=== PATIENT | male | born 1945 | race Hispanic/Latino ===

== ENCOUNTER 2020-05-03 18:37 | Inpatient (IN) | payer MEDICARE ==
--- NOTE | 2020-05-03 19:43 | RAD ---
EXAM: CHEST ONE VIEW HISTORY: Shortness of breath. Missed dialysis yesterday. COMPARISON: 04/03/2020 FINDINGS: Right-sided tunneled hemodialysis catheter remains in place. Cardiac silhouette is magnified by proje ction. Pulmonary vasculature and interstitial edema noted on the prior exam has significantly improved. A small to moderate size right pleural effusion is again seen but has decreased in size. No left pleural effusion is appreciated. No other interval change. IMPRESSION: Resolution of vascular congestion and interstitial edema compared to prior exam. Right pleural effusi on is again seen but mildly diminished in size.
--- NOTE | 2020-05-03 19:51 | CT ---
CT HEAD WITHOUT IV CONTRAST COMPARISON: 01/03/2020 HISTORY: Altered mental status TECHNIQUE: Axial CT imaging at 5 mm intervals from vertex through skull base without contrast FINDINGS: There is decreased attenuation in the periventricular white matter which is nonspecific but likely re flective of chronic small vessel ischemic changes. There is mild cerebral volume loss. The ventricular system is normal in size, shape, and position for the degree of sulcal atrophy. There is no evidence of an acute infarction, hemorrhage, mass effect, or midline shift. Skull base has a normal CT appearance. Trace mucosal thickening is present in the right maxillary antrum. Mastoid air cells are clear. Osseous structures appear intact. No significant interval change compared to prior study. IMPRESSION: 1. No acute intracranial abnormality demonstrated. 2. Stable chronic changes.
[2020-05-03 20:18] LABS: Hemoglobin 9.9 g/dL (14.0-18.0); Mean Corpuscular HGB CONC 30.9 g/dL (32.0-36.0); RBC Distribution Width 15.3 % (11.5-14.5); Red Blood Cell (RBC) Count 3.17 mill/uL (4.70-6.10); White Blood Cell (WBC) Count 9.1 thou/uL (4.8-10.8)
[2020-05-03 20:26] LABS: #Eosinphils 0.2 thou/uL (0.0-0.7); #Lymphocytes 1.5 thou/uL (1.20-3.40); #Monocytes 0.7 thou/uL (0.11-0.59); #Neutrophils 6.7 thou/uL (1.40-6.50); %Basophils 0.3 % (0.0-1.0); %Eosinophils 2.3 % (0.0-10.0); %Lymphocytes 16.5 % (21.0-51.0); %Monocytes 7.6 % (0.0-10.0); %Neutrophils 73.3 % (42.0-75.0)
[2020-05-03] MEDS ORDERED: cefTRIAXone\\ROCEPHIN 1 GM VIAL ONE (21:31)
[2020-05-03] MEDS ORDERED: Vancomycin 1 GM/200 ML BAG ONE (21:31)
[2020-05-03 21:47] LABS: ALT (SGPT) 7 U/L (8-55); AST (SGOT) 12 U/L (5-34); Albumin 3.1 g/dL (3.4-4.8); Alkaline Phosphatase 163 U/L (40-110); Anion Gap 18 mmol/L (10-20); BUN (Urea Nitrogen) 27 mg/dL (8.4-25.7); Bilirubin, Total 0.5 mg/dL (0.2-1.2); Calc. Creatinine Clearance 0 mL/min (70-130); Calcium 8.7 mg/dL (7.8-10.44); Carbon Dioxide 25 mmol/L (23-31); Chloride 102 mmol/L (98-107); Globulin 3.6 g/dL (2.4-3.5); Glucose 98 mg/dL (83-110); Lipase 56 U/L (8-78); Potassium 3.6 mmol/L (3.5-5.1); Protein, Total 6.7 g/dL (5.8-8.1); Sodium 141 mmol/L (136-145)
[2020-05-03 22:03] LABS: Mean Platelet Volume 8.5 fL (7.4-10.4); Platelet Count 154 thou/uL (130-400)
--- NOTE | 2020-05-03 23:15 | PDOC.HHP ---
Hospitalist HPI - History of Present Illness History of Present Illness: ADMISSION DATE: 05/03/2020 TIME OF ASSESSMENT: 0 PRIMARY CARE PHYSICIAN: Karlos at [facility] CHIEF COMPLAINT: Generalized weakness HPI: Patient is a 75-year-old male with past medical history significant for end-stage renal disease on dialysis, Covid diagnosis last month, hypertension. He presents today for generalized weakness which began this morning. Patient states he was supposed to have dialysis yesterday but missed it due to nonfunctioning vehicle. He denies fever, chest pain, nausea, vomiting, shortness of breath. Patient states he was feeling fine yesterday and just woke up more tired today. No new medications have been started. APS was contacted while patient was in the ER. After the patient has dialysis yesterday the nephew dropped him off at the dialysis clinic before seeing if there is any availability. The nephew left at that time and dialysis in the police department was seen unable to get a hold of him. EMS was called and brought the patient to the hospital at that time. Patient declined to mention this during interview and states that he was here for his weakness. Patient was Covid positive approximately a month ago but states he is better from that. ED COURSE: Vital Signs: Blood pressure 179/98, pulse 77, respiratory rate 20, temp 98.7, O2 saturation 96% on room air Today in the ER they completed lab work, head CT, chest x-ray, EKG. He was administered vancomycin 1 g IV and ceftriaxone 1 g IV. PAST MEDICAL HISTORY: End-stage renal disease on dialysis, diabetes mellitus type 2, hyperlipidemia, hypertension PAST SURGICAL HISTORY: Bilateral rotator cuff surgery, right subclavian HD catheter placement SOCIAL HISTORY: Patient lives in an apartment with family. He uses a wheelchair to get around, states he is unable to ambulate. Patient denies tobacco, drug, alcohol use. FAMILY HISTORY: Patient is unable to recall ALLERGIES: No known drug allergies CURRENT MEDICATIONS: Atorvastatin 40 mg once a day Bisacodyl 5 mg once a day Bupropion 150 mg once a day Carvedilol 12.5 mg twice a day Hydralazine 100 mg 3 times a day Losartan 100 mg once a day MiraLAX once a day Namenda 10 mg twice a day Nifedipine 60 mg once a day Oxycodone as needed Pantoprazole 40 mg daily Tamsulosin 0.4 mg daily Tizanidine 4 mg every 8 hours Trazodone 200 mg at night Vitamin D3 2000 units daily Hospitalist ROS - Review of Systems Constitutional: reports: weakness All other systems reviewed; all pertinent +/- noted in HPI/Subj - Exam General Appearance: NAD, awake alert Eye: PERRL ENT: normocephalic atraumatic Neck: supple Neck - other findings: right subclavian HD port Heart: RRR, no gallops, diminshed peripheral pulses, murmur present (3/6) Respiratory: CTAB, no wheezes, no rales, no ronchi, normal chest expansion Gastrointestinal: soft, non-tender, non-distended, normal bowel sounds Extremities: 1+ LE edema Neurological: no focal deficits Musculoskeletal: no muscle wasting, generalized weakness Psychiatric: normal affect, normal behavior Hospitalist Results - Labs Result Diagrams: 05/03/20 19:52 05/03/20 21:17 Lab results: WBC 9.1 thou/uL (4.8-10.8) 05/03/20 19:52 Hgb 9.9 g/dL (14.0-18.0) L 05/03/20 19:52 Hct 31.9 % (42.0-52.0) L 05/03/20 19:52 MCV 100.0 fL (78.0-98.0) H 05/03/20 19:52 Plt Count 154 thou/uL (130-400) 05/03/20 19:52 Neutrophils % 73.3 % (42.0-75.0) 05/03/20 19:52 Sodium 141 mmol/L (136-145) 05/03/20 21:17 Potassium 3.6 mmol/L (3.5-5.1) 05/03/20 21:17 Chloride 102 mmol/L (98-107) 05/03/20 21:17 Carbon Dioxide 25 mmol/L (23-31) 05/03/20 21:17 BUN 27 mg/dL (8.4-25.7) H 05/03/20 21:17 Creatinine 8.02 mg/dL (0.7-1.3) H 05/03/20 21:17 Glucose 98 mg/dL (83-110) 05/03/20 21:17 Lactic Acid 2.1 mmol/L (0.5-2.2) 05/03/20 20:18 Calcium 8.7 mg/dL (7.8-10.44) 05/03/20 21:17 Total Bilirubin 0.5 mg/dL (0.2-1.2) 05/03/20 21:17 AST 12 U/L (5-34) 05/03/20 21:17 ALT 7 U/L (8-55) L 05/03/20 21:17 Alkaline Phosphatase 163 U/L (40-110) H 05/03/20 21:17 Troponin I 0.023 ng/mL (< 0.028) 05/03/20 19:52 Serum Total Protein 6.7 g/dL (5.8-8.1) 05/03/20 21:17 Albumin 3.1 g/dL (3.4-4.8) L 05/03/20 21:17 Lipase 56 U/L (8-78) 05/03/20 21:17 - EKG Interpretation EKG: SR 76 bpm - Radiology Interpretation CT scan - head Status: report reviewed by me Additional Comment: IMPRESSION: 1. No acute intracranial abnormality demonstrated. 2. Stable chronic changes. Chest x-ray Status: image reviewed by me, report reviewed by me Additional Comment: IMPRESSION: Resolution of vascular congestion and interstitial edema compared to prior exam. Right pleural effusion is again seen but mildly diminished in size. Hospitalist H&P A/P - Plan Plan: Generalized weakness Possible new onset murmurecho in a.m. Continue to follow labs Patient is poor historian but reports missed dialysis treatment yesterday Heart murmur- possibly new Echo in a.m. Concerns for endocarditis in ERcurrently afebrile, no leukocytosiscontinue to monitor patient vitals along with lab work, continue IV antibiotics and consider cardiology consultation if deemed necessary after echo tomorrow Anemia Possibly from chronic disease Continue to monitor, no signs of bleeding Hypertension Restart patient home medications once reconciled End-stage renal disease on dialysis Consult nephrology in a.m. Patient may possibly need dialysis tomorrow as he missed yesterday Diabetes mellitus type 2 Monitor Accu-Cheks AC at bedtime Mild sliding scale insulin VTE prophylaxis in place with heparin CODE STATUS: Full Surrogate decision-maker is his nephew
[2020-05-03] MEDS ORDERED: HumaLOG 300 UNITS/3 ML VIAL SC PRN ×2 (23:27)
[2020-05-03] MEDS ORDERED: Dextrose 5% in Water 1,000 ML IV PRN (23:27)
[2020-05-03] MEDS ORDERED: Dextrose 50% Abboject 50 ML SYRINGE SLOW IVP PRN (23:27)
[2020-05-04 00:21] LABS: Lactic Acid 1.4 mmol/L (0.5-2.2)
[2020-05-04] MEDS ORDERED: Vancomycin HCl 250 MG in Sodium Chloride 0.9% 100 ML IVPB SCH (01:30)
[2020-05-04] MEDS ORDERED: HOLD VANCOMYCIN FOR LEVEL >20 FS SCH (01:30)
[2020-05-04] MEDS ORDERED: Vancomycin HCl 750 MG in Sodium Chloride 0.9% 250 ML 250 ML IVPB SCH ×2 (01:30→23:59)
[2020-05-04] MEDS ORDERED: Vancomycin HCl 500 MG in Sodium Chloride 0.9% 100 ML IVPB SCH (01:30)
[2020-05-04] MEDS ORDERED: Vancomycin 1 GM in Premix Bag 1 BAG IVPB SCH (01:30)
[2020-05-04] MEDS ORDERED: Labetalol HCl 100 MG/20 ML VIAL SLOW IVP PRN (04:07)
[2020-05-04] MEDS ORDERED: hydrALAZINE 20 MG/ML VIAL SLOW IVP PRN (04:07)
[2020-05-04] MEDS: Heparin 5,000 UNITS/ML VIAL SC SCH ×3 (08:49→20:36)
[2020-05-04] MEDS ORDERED: FLU VACC QS2020-21(65YR UP)/PF 240 MCG/0.7 ML SYRINGE IM ONE (09:00)
[2020-05-04 11:01] LABS: #Eosinphils 0.3 thou/uL (0.0-0.7); #Monocytes 0.5 thou/uL (0.11-0.59); #Neutrophils 7.4 thou/uL (1.40-6.50); %Basophils 0.4 % (0.0-1.0); %Lymphocytes 10.8 % (21.0-51.0); %Monocytes 4.9 % (0.0-10.0); %Neutrophils 80.9 % (42.0-75.0); Mean Corpuscular HGB CONC 31.6 g/dL (32.0-36.0); Mean Corpuscular Hemoglobin 31.6 pg (27.0-31.0); Mean Platelet Volume 8.9 fL (7.4-10.4); Platelet Count 161 thou/uL (130-400); RBC Distribution Width 15.1 % (11.5-14.5); Red Blood Cell (RBC) Count 2.83 mill/uL (4.70-6.10); White Blood Cell (WBC) Count 9.1 thou/uL (4.8-10.8)
[2020-05-04 11:21] LABS: Anion Gap 17 mmol/L (10-20); BUN (Urea Nitrogen) 34 mg/dL (8.4-25.7); Calc. Creatinine Clearance 7 mL/min (70-130); Calcium 8.4 mg/dL (7.8-10.44); Carbon Dioxide 26 mmol/L (23-31); Chloride 102 mmol/L (98-107); Glucose 100 mg/dL (83-110); Potassium 3.6 mmol/L (3.5-5.1); Sodium 141 mmol/L (136-145)
--- NOTE | 2020-05-04 13:55 | PDOC.NEPPN ---
- Subjective Encounter Date: 05/04/20 Subjective: 75 y/o male, well known to me from prior hospitalizations at [facility], with multiple comorbities including HTN, ESRD on HD MWF amongst others admitted due to generalized weakness. He denied nausea, vomiting, frequent loose stool, chest pain or fever. Last HD was on 04/30/2020. Still complaining of weakness. Remained afebrile. - Objective Vital Signs & Weight: Vital Signs (12 hours) Temp Pulse Resp BP BP Pulse Ox 05/04/20 11:42 98.3 F 101 H 18 171/86 H 97 05/04/20 08:45 99.4 F 99 16 162/76 H 95 05/04/20 05:09 78 172/83 H 05/04/20 03:50 98.2 F 78 17 182/88 H 97 Weight Weight 139 lb 6.4 oz I&O: 05/03/20 05/04/20 05/05/20 06:59 06:59 06:59 Intake Total 480 480 Output Total 0 0 Balance 480 480 Result Diagrams: 05/04/20 10:36 05/04/20 10:36 Additional Labs: Accuchecks 05/04/20 05/04/20 10:52 06:45 POC Glucose 98 101 H Nephrology ROS - Medication Medications: Active Medications Generic Name Dose Route Start Last Admin Trade Name Isaacq PRN Reason Stop Dose Admin Heparin Sodium (Porcine) 5,000 units 05/04/20 09:00 05/04/20 08:49 Heparin 5,000 Units/Ml Vial SC 5,000 units TID CHRISTIAN Administration - Exam General Appearance: awake alert General - other findings: fatigued. afebrile. Eye: anicteric sclera ENT: normocephalic atraumatic, moist mucosa Neck: symmetric, no JVD Respiratory: no ronchi, no tachypnea Respiratory - other findings: fair air entry bilaterally Cardiovascular: RRR, murmur present Gastrointestinal: soft, non-tender, non-distended, normal bowel sounds Extremities: no edema Neurological: CN's grossly intact, no focal deficits Musculoskeletal: generalized weakness PSYCH: A&O x 3 Nephrology Results - Labs Result Diagrams: 05/04/20 10:36 05/04/20 10:36 Lab results: WBC 9.1 thou/uL (4.8-10.8) 05/04/20 10:36 Hgb 9.0 g/dL (14.0-18.0) L 05/04/20 10:36 Hct 28.3 % (42.0-52.0) L 05/04/20 10:36 MCV 100.0 fL (78.0-98.0) H 05/04/20 10:36 Plt Count 161 thou/uL (130-400) 05/04/20 10:36 Neutrophils % 80.9 % (42.0-75.0) H 05/04/20 10:36 Sodium 141 mmol/L (136-145) 05/04/20 10:36 Potassium 3.6 mmol/L (3.5-5.1) 05/04/20 10:36 Chloride 102 mmol/L (98-107) 05/04/20 10:36 Carbon Dioxide 26 mmol/L (23-31) 05/04/20 10:36 BUN 34 mg/dL (8.4-25.7) H 05/04/20 10:36 Creatinine 8.33 mg/dL (0.7-1.3) H 05/04/20 10:36 Glucose 100 mg/dL (83-110) 05/04/20 10:36 Lactic Acid 1.4 mmol/L (0.5-2.2) 05/03/20 23:20 Calcium 8.4 mg/dL (7.8-10.44) 05/04/20 10:36 Total Bilirubin 0.5 mg/dL (0.2-1.2) 05/03/20 21:17 AST 12 U/L (5-34) 05/03/20 21:17 ALT 7 U/L (8-55) L 05/03/20 21:17 Alkaline Phosphatase 163 U/L (40-110) H 05/03/20 21:17 Troponin I 0.023 ng/mL (< 0.028) 05/03/20 19:52 Serum Total Protein 6.7 g/dL (5.8-8.1) 05/03/20 21:17 Albumin 3.1 g/dL (3.4-4.8) L 05/03/20 21:17 Lipase 56 U/L (8-78) 05/03/20 21:17 Sodium 141 mmol/L (136-145) 05/04/20 10:36 Potassium 3.6 mmol/L (3.5-5.1) 05/04/20 10:36 Chloride 102 mmol/L (98-107) 05/04/20 10:36 Carbon Dioxide 26 mmol/L (23-31) 05/04/20 10:36 Anion Gap 17 mmol/L (10-20) 05/04/20 10:36 BUN 34 mg/dL (8.4-25.7) H 05/04/20 10:36 Creatinine 8.33 mg/dL (0.7-1.3) H 05/04/20 10:36 Glucose 100 mg/dL (83-110) 05/04/20 10:36 Calcium 8.4 mg/dL (7.8-10.44) 05/04/20 10:36 Albumin 3.1 g/dL (3.4-4.8) L 05/03/20 21:17 Nephrology AP PN - Plan ESRD on HD on MWF. last HD was on 04/30/2020 Anemia In CKD. DM on treatment HTN: has history of orthostatic hypotension. Physical deconditioning. recurrent. Was at [facility] few weeks ago. Plan. We will diayze patient with UF as tolerated today. See EMR. We will monitor BP after dialysis and adjust antihypertensives. Will restart ASHA.
[2020-05-04] MEDS ORDERED: EPOETIN ALFA-EPBX (ESRD) 10,000 UNIT/ML VIAL SC SCH (14:45)
[2020-05-04] MEDS ORDERED: cefTRIAXone\\ROCEPHIN 1 GM in Sodium Chloride 0.9% 100 ML IVPB SCH (21:30)
[2020-05-04 22:33] LABS: Vancomycin, Random 9.4 ug/mL (See Comment)
[2020-05-04 22:38] LABS: HBSAg Index 0.22 S/CO (0-0.99); Hep B Surf Ag Non-Reactive S/CO (NonReactive)
[2020-05-05 04:40] LABS: #Eosinphils 0.2 thou/uL (0.0-0.7); #Lymphocytes 1.3 thou/uL (1.20-3.40); #Monocytes 0.5 thou/uL (0.11-0.59); %Basophils 0.7 % (0.0-1.0); %Eosinophils 3.5 % (0.0-10.0); %Lymphocytes 21.7 % (21.0-51.0); %Monocytes 7.7 % (0.0-10.0); %Neutrophils 66.4 % (42.0-75.0); Hemoglobin 8.7 g/dL (14.0-18.0); Mean Corpuscular HGB CONC 31.7 g/dL (32.0-36.0); Mean Corpuscular Hemoglobin 31.5 pg (27.0-31.0); Mean Corpuscular Volume 99.5 fL (78.0-98.0); Mean Platelet Volume 8.7 fL (7.4-10.4); Platelet Count 144 thou/uL (130-400); RBC Distribution Width 14.9 % (11.5-14.5); Red Blood Cell (RBC) Count 2.75 mill/uL (4.70-6.10)
[2020-05-05 04:47] LABS: Anion Gap 14 mmol/L (10-20); BUN (Urea Nitrogen) 14 mg/dL (8.4-25.7); Calc. Creatinine Clearance 13 mL/min (70-130); Carbon Dioxide 27 mmol/L (23-31); Chloride 103 mmol/L (98-107); Glucose 77 mg/dL (83-110); Potassium 3.9 mmol/L (3.5-5.1); Sodium 140 mmol/L (136-145)
--- NOTE | 2020-05-05 07:46 | PDOC.NEPPN ---
- Subjective Encounter Date: 05/05/20 Subjective: No new problem. Still generally weak. - Objective Vital Signs & Weight: Vital Signs (12 hours) Temp Pulse Resp BP Pulse Ox 05/05/20 07:20 98.7 F 89 17 165/85 H 95 05/05/20 04:00 99.2 F 90 12 156/80 H 96 05/04/20 23:10 99.1 F 81 20 152/83 H 92 L Weight Weight 138 lb 3.677 oz I&O: 05/04/20 05/05/20 05/06/20 06:59 06:59 06:59 Intake Total 480 1550 Output Total 0 0 Balance 480 1550 Result Diagrams: 05/05/20 04:13 05/05/20 04:13 Additional Labs: Accuchecks 05/05/20 05/04/20 05/04/20 06:24 20:59 10:52 POC Glucose 81 126 H 98 Nephrology ROS - Medication Medications: Active Medications Generic Name Dose Route Start Last Admin Trade Name Freq PRN Reason Stop Dose Admin Heparin Sodium (Porcine) 5,000 units 05/04/20 09:00 05/04/20 20:36 Heparin 5,000 Units/Ml Vial SC 5,000 units TID CHRISTIAN Administration Ceftriaxone Sodium 1 gm/ 100 mls @ 200 mls/hr 05/04/20 21:30 05/04/20 20:35 Sodium Chloride IVPB 100 mls Q24HR CHRISTIAN Administration - Exam General Appearance: awake alert Eye: anicteric sclera ENT: normocephalic atraumatic Neck: no JVD Respiratory: no wheezes, no rales, no ronchi, no tachypnea Cardiovascular: RRR, murmur present Gastrointestinal: soft, non-tender, non-distended, normal bowel sounds Extremities: no edema Neurological: CN's grossly intact Musculoskeletal: generalized weakness PSYCH: A&O x 3 Nephrology Results - Labs Result Diagrams: 05/05/20 04:13 05/05/20 04:13 Lab results: WBC 6.0 thou/uL (4.8-10.8) 05/05/20 04:13 Hgb 8.7 g/dL (14.0-18.0) L 05/05/20 04:13 Hct 27.4 % (42.0-52.0) L 05/05/20 04:13 MCV 99.5 fL (78.0-98.0) H 05/05/20 04:13 Plt Count 144 thou/uL (130-400) 05/05/20 04:13 Neutrophils % 66.4 % (42.0-75.0) 05/05/20 04:13 Sodium 140 mmol/L (136-145) 05/05/20 04:13 Potassium 3.9 mmol/L (3.5-5.1) 05/05/20 04:13 Chloride 103 mmol/L (98-107) 05/05/20 04:13 Carbon Dioxide 27 mmol/L (23-31) 05/05/20 04:13 BUN 14 mg/dL (8.4-25.7) 05/05/20 04:13 Creatinine 4.35 mg/dL (0.7-1.3) H 05/05/20 04:13 Glucose 77 mg/dL (83-110) L 05/05/20 04:13 Lactic Acid 1.4 mmol/L (0.5-2.2) 05/03/20 23:20 Calcium 8.0 mg/dL (7.8-10.44) 05/05/20 04:13 Total Bilirubin 0.5 mg/dL (0.2-1.2) 05/03/20 21:17 AST 12 U/L (5-34) 05/03/20 21:17 ALT 7 U/L (8-55) L 05/03/20 21:17 Alkaline Phosphatase 163 U/L (40-110) H 05/03/20 21:17 Troponin I 0.023 ng/mL (< 0.028) 05/03/20 19:52 Serum Total Protein 6.7 g/dL (5.8-8.1) 05/03/20 21:17 Albumin 3.1 g/dL (3.4-4.8) L 05/03/20 21:17 Lipase 56 U/L (8-78) 05/03/20 21:17 Sodium 140 mmol/L (136-145) 05/05/20 04:13 Potassium 3.9 mmol/L (3.5-5.1) 05/05/20 04:13 Chloride 103 mmol/L (98-107) 05/05/20 04:13 Carbon Dioxide 27 mmol/L (23-31) 05/05/20 04:13 Anion Gap 14 mmol/L (10-20) 05/05/20 04:13 BUN 14 mg/dL (8.4-25.7) 05/05/20 04:13 Creatinine 4.35 mg/dL (0.7-1.3) H 05/05/20 04:13 Glucose 77 mg/dL (83-110) L 05/05/20 04:13 Calcium 8.0 mg/dL (7.8-10.44) 05/05/20 04:13 Albumin 3.1 g/dL (3.4-4.8) L 05/03/20 21:17 Nephrology AP PN - Plan ESRD on HD on MWF. last HD was on 05/04/20 Anemia In CKD. DM on treatment HTN: Control is suboptimal. Physical deconditioning. recurrent. Plan. Start Nifedipine 30 mg daily Get PT/OT eval and treat Continue ASHA.
[2020-05-05] MEDS: Heparin 5,000 UNITS/ML VIAL SC SCH ×3 (08:40→21:36)
[2020-05-05] MEDS ORDERED: NIFEdipine XL 30 MG TAB PO SCH (09:00)
[2020-05-05] MEDS ORDERED: Bisacodyl 5 MG TAB PO PRN (11:03)
[2020-05-05] MEDS: tiZANidine HCl 4 MG TAB PO SCH ×2 (11:21→21:40)
--- NOTE | 2020-05-05 12:19 | EKG ---
Test Reason : Blood Pressure : / mmHG Vent. Rate : 076 BPM Atrial Rate : 076 BPM P-R Int : 126 ms QRS Dur : 070 ms QT Int : 398 ms P-R-T Axes : 002 003 025 degrees QTc Int : 447 ms Normal sinus rhythm Minimal voltage criteria for LVH, may be normal variant Borderline ECG Confirmed by ULYSSES ROMO ([id number]), copy editor KI HUITRON ([id number]) on 05/05/2020 12:18:59 PM Referred By: Confirmed By:ULYSSES ROMO
[2020-05-05] MEDS: hydrALAZINE 25 MG TAB PO SCH ×2 (15:19→22:59)
--- NOTE | 2020-05-05 17:08 | PDOC.HOSPP ---
- Subjective Encounter Date: 05/05/20 Encounter Time: 10:09 Subjective: Patient up in bed denies any complaints - Objective Vital Signs & Weight: Vital Signs (12 hours) Temp Pulse Resp BP Pulse Ox 05/05/20 15:19 98.2 F 100 18 173/86 H 94 L 05/05/20 11:16 98.5 F 98 18 160/78 H 93 L 05/05/20 07:40 95 05/05/20 07:20 98.7 F 89 17 165/85 H 95 Weight Weight 138 lb 3.677 oz I&O: 05/04/20 05/05/20 05/06/20 06:59 06:59 06:59 Intake Total 480 1550 Output Total 0 0 Balance 480 1550 Result Diagrams: 05/05/20 04:13 05/05/20 04:13 Additional Labs: Accuchecks 05/05/20 05/05/20 05/04/20 11:00 06:24 20:59 POC Glucose 106 H 81 126 H Hospitalist ROS - Review of Systems Cardiovascular: denies: chest pain, palpitations, orthopnea, paroxysmal noc. dyspnea, edema, light headedness, other Gastrointestinal: denies: nausea, vomiting, abdominal pain, diarrhea, constipation, melena, hematochezia, other Genitourinary: denies: dysuria, frequency, incontinence, hematuria, retention, other - Medication Medications: Active Medications Generic Name Dose Route Start Last Admin Trade Name Freq PRN Reason Stop Dose Admin Heparin Sodium (Porcine) 5,000 units 05/04/20 09:00 05/05/20 15:19 Heparin 5,000 Units/Ml Vial SC 5,000 units TID CHRISTIAN Administration Hydralazine HCl 100 mg 05/05/20 15:00 05/05/20 15:19 Hydralazine 25 Mg Tab PO 100 mg TID CHRISTIAN Administration Ceftriaxone Sodium 1 gm/ 100 mls @ 200 mls/hr 05/04/20 21:30 05/04/20 20:35 Sodium Chloride IVPB 100 mls Q24HR CHRISTIAN Administration Nifedipine 30 mg 05/05/20 09:00 05/05/20 08:40 Nifedipine Xl 30 Mg Tab PO 30 mg DAILY CHRISTIAN Administration Tizanidine HCl 4 mg 05/05/20 12:00 05/05/20 11:21 Tizanidine Hcl 4 Mg Tab PO 4 mg 0400,1200,2000 CHRISTIAN Administration - Exam Neck: negative: supple, symmetric, no JVD, no thyromegaly, no lymphadenopathy, no carotid bruit, JVD Heart - other findings: Systolic murmur Respiratory: negative: CTAB, no wheezes, no rales, no ronchi, normal chest expansion, no tachypnea, normal percussion, rales, rhonchi, tachypneic, wheezes Gastrointestinal: negative: soft, non-tender, non-distended, normal bowel christian nds, no palpable masses, no hepatomegaly, no splenomegaly, no bruit, no guarding, no rigidity, tender to palpation, distended, diminished bowl sounds, voluntary guarding Hosp A/P - Plan Generalized weakness Possible new onset murmurecho in a.m. Continue to follow labs Patient is poor historian but reports missed dialysis treatment yesterday Heart murmur- possibly new Echo in a.m. Concerns for endocarditis in ERcurrently afebrile, no leukocytosiscontinue to monitor patient vitals along with lab work, continue IV antibiotics and consider cardiology consultation if deemed necessary after echo tomorrow Anemia Possibly from chronic disease Continue to monitor, no signs of bleeding Hypertension Restart patient home medications once reconciled End-stage renal disease on dialysis Consult nephrology in a.m. Patient may possibly need dialysis tomorrow as he missed yesterday Diabetes mellitus type 2 Monitor Accu-Cheks AC at bedtime Mild sliding scale insulin VTE prophylaxis in place with heparin CODE STATUS: Full Surrogate decision-maker is his nephew 1/2 patient's echo did not indicate any acute abnormalities. He is got no fever. No elevated WBCs. I do not believe this is endocarditis. We will stop vancomycin and ceftriaxone. PT OT to eval. There was some concerns for safety since APS was notified while patient was in the ER. We will get case management for possible short-term placement.
[2020-05-05] MEDS: Carvedilol 6.25 MG TAB PO SCH (21:35)
[2020-05-05] MEDS: traZODone HCl 50 MG TAB PO SCH (21:36)
[2020-05-05 23:19] LABS: Vancomycin, Trough 18.6 ug/mL
[2020-05-06] MEDS: tiZANidine HCl 4 MG TAB PO SCH ×3 (04:02→21:03)
[2020-05-06] MEDS: Carvedilol 6.25 MG TAB PO SCH ×2 (08:49→21:02)
--- NOTE | 2020-05-06 08:49 | PDOC.NEPPN ---
- Subjective Encounter Date: 05/06/20 Subjective: No new problem. - Objective Vital Signs & Weight: Vital Signs (12 hours) Temp Pulse Resp BP BP Pulse Ox 05/06/20 07:25 98.2 F 71 18 135/63 93 L 05/06/20 04:00 99.2 F 74 20 117/56 L 94 L 05/06/20 00:00 97.8 F 92 20 115/56 L 94 L 05/05/20 22:59 95 94/55 L 05/05/20 21:35 108/60 05/05/20 21:00 108/60 Weight Weight 143 lb 11.862 oz I&O: 05/05/20 05/06/20 05/07/20 06:59 06:59 06:59 Intake Total 1550 1080 Output Total 0 Balance 1550 1080 Result Diagrams: 05/05/20 04:13 05/05/20 04:13 Additional Labs: Accuchecks 05/06/20 05/05/20 05/05/20 03:59 17:26 11:00 POC Glucose 187 H 123 H 106 H Nephrology ROS - Medication Medications: Active Medications Generic Name Dose Route Start Last Admin Trade Name Freq PRN Reason Stop Dose Admin Carvedilol 12.5 mg 05/05/20 21:00 05/05/20 21:35 Carvedilol 6.25 Mg Tab PO 12.5 mg BID CHRISTIAN Administration Heparin Sodium (Porcine) 5,000 units 05/04/20 09:00 05/05/20 21:36 Heparin 5,000 Units/Ml Vial SC 5,000 units TID CHRISTIAN Administration Insulin Human Lispro 0 units 05/03/20 23:27 05/06/20 06:07 Humalog 300 Units/3 Ml Vial SC 2 unit .MILD SLIDING SCALE PRN Administration Mild Correctional Scale Insulin Human Lispro 0 units 05/03/20 23:27 05/05/20 21:38 Humalog 300 Units/3 Ml Vial SC 4 unit .BEDTIME SLIDING SC PRN Administration Bedtime Correctional Scale Memantine 10 mg 05/05/20 21:00 05/05/20 21:35 Memantine Hcl 10 Mg Tab PO 10 mg BID CHRISTIAN Administration Tizanidine HCl 4 mg 05/05/20 12:00 05/06/20 04:02 Tizanidine Hcl 4 Mg Tab PO 4 mg 0400,1200,2000 CHRISTIAN Administration Trazodone HCl 200 mg 05/05/20 21:00 05/05/20 21:36 Trazodone Hcl 50 Mg Tab PO 200 mg HS CHRISTIAN Administration - Exam General Appearance: awake alert Eye: anicteric sclera ENT: normocephalic atraumatic, moist mucosa Neck: supple, symmetric, no JVD Respiratory: CTAB, no wheezes, no rales, no ronchi, normal chest expansion, no tachypnea Cardiovascular: RRR, murmur present Gastrointestinal: soft, non-tender, non-distended Extremities: no edema Neurological: CN's grossly intact, no focal deficits Musculoskeletal: generalized weakness PSYCH: A&O x 3 Nephrology Results - Labs Result Diagrams: 05/05/20 04:13 05/05/20 04:13 Lab results: WBC 6.0 thou/uL (4.8-10.8) 05/05/20 04:13 Hgb 8.7 g/dL (14.0-18.0) L 05/05/20 04:13 Hct 27.4 % (42.0-52.0) L 05/05/20 04:13 MCV 99.5 fL (78.0-98.0) H 05/05/20 04:13 Plt Count 144 thou/uL (130-400) 05/05/20 04:13 Neutrophils % 66.4 % (42.0-75.0) 05/05/20 04:13 Sodium 140 mmol/L (136-145) 05/05/20 04:13 Potassium 3.9 mmol/L (3.5-5.1) 05/05/20 04:13 Chloride 103 mmol/L (98-107) 05/05/20 04:13 Carbon Dioxide 27 mmol/L (23-31) 05/05/20 04:13 BUN 14 mg/dL (8.4-25.7) 05/05/20 04:13 Creatinine 4.35 mg/dL (0.7-1.3) H 05/05/20 04:13 Glucose 77 mg/dL (83-110) L 05/05/20 04:13 Lactic Acid 1.4 mmol/L (0.5-2.2) 05/03/20 23:20 Calcium 8.0 mg/dL (7.8-10.44) 05/05/20 04:13 Total Bilirubin 0.5 mg/dL (0.2-1.2) 05/03/20 21:17 AST 12 U/L (5-34) 05/03/20 21:17 ALT 7 U/L (8-55) L 05/03/20 21:17 Alkaline Phosphatase 163 U/L (40-110) H 05/03/20 21:17 Troponin I 0.023 ng/mL (< 0.028) 05/03/20 19:52 Serum Total Protein 6.7 g/dL (5.8-8.1) 05/03/20 21:17 Albumin 3.1 g/dL (3.4-4.8) L 05/03/20 21:17 Lipase 56 U/L (8-78) 05/03/20 21:17 Sodium 140 mmol/L (136-145) 05/05/20 04:13 Potassium 3.9 mmol/L (3.5-5.1) 05/05/20 04:13 Chloride 103 mmol/L (98-107) 05/05/20 04:13 Carbon Dioxide 27 mmol/L (23-31) 05/05/20 04:13 Anion Gap 14 mmol/L (10-20) 05/05/20 04:13 BUN 14 mg/dL (8.4-25.7) 05/05/20 04:13 Creatinine 4.35 mg/dL (0.7-1.3) H 05/05/20 04:13 Glucose 77 mg/dL (83-110) L 05/05/20 04:13 Calcium 8.0 mg/dL (7.8-10.44) 05/05/20 04:13 Albumin 3.1 g/dL (3.4-4.8) L 05/03/20 21:17 Nephrology AP PN - Plan ESRD on HD on MWF. Last HD was on 05/04/20 Anemia In CKD. DM on treatment HTN: Patient has labile BP. BP went down with restart of home antihypertensive Physical deconditioning. recurrent. Plan. Continue losartan DC hydralazine and nifedipine. Monitor BP closely and add more antihypertensive if needed after HD tomorrow. Continue ASHA.
[2020-05-06] MEDS: Losartan 25 MG TAB PO SCH (08:50)
[2020-05-06] MEDS: Atorvastatin Calcium 40 MG TAB PO SCH (08:50)
[2020-05-06] MEDS: Tamsulosin HCl 0.4 MG CAP PO SCH (08:50)
[2020-05-06] MEDS: Heparin 5,000 UNITS/ML VIAL SC SCH ×3 (08:50→21:01)
[2020-05-06] MEDS: Cholecalciferol 1,000 UNITS (25 MCG) TAB PO SCH (08:50)
[2020-05-06] MEDS: buPROPion 75 MG TAB PO SCH (08:50)
[2020-05-06] MEDS: Polyethylene Glycol 3350 17 GM Packet PO SCH (08:51)
[2020-05-06] MEDS ORDERED: NIFEdipine XL 60 MG TAB PO SCH (09:00)
--- NOTE | 2020-05-06 18:29 | PDOC.HOSPP ---
- Subjective Encounter Date: 05/06/20 Encounter Time: 13:00 Subjective: Patient up in bed no complaint - Objective Vital Signs & Weight: Vital Signs (12 hours) Temp Pulse Resp BP Pulse Ox 05/06/20 15:23 97.6 F 77 16 154/70 H 94 L 05/06/20 12:05 97.8 F 103 H 16 140/78 94 L 05/06/20 07:25 98.2 F 71 18 135/63 93 L Weight Weight 143 lb 11.862 oz I&O: 05/05/20 05/06/20 05/07/20 06:59 06:59 06:59 Intake Total 1550 1080 960 Output Total 0 Balance 1550 1080 960 Result Diagrams: 05/05/20 04:13 05/05/20 04:13 Additional Labs: Accuchecks 05/06/20 05/06/20 05/06/20 18:01 12:03 03:59 POC Glucose 85 108 H 187 H Hospitalist ROS - Review of Systems Respiratory: denies: cough, dry, shortness of breath, hemoptysis, SOB with excertion, pleuritic pain, sputum, wheezing, other Cardiovascular: denies: chest pain, palpitations, orthopnea, paroxysmal noc. dyspnea, edema, light headedness, other Gastrointestinal: denies: nausea, vomiting, abdominal pain, diarrhea, constipation, melena, hematochezia, other - Medication Medications: Active Medications Generic Name Dose Route Start Last Admin Trade Name Freq PRN Reason Stop Dose Admin Atorvastatin Calcium 40 mg 05/06/20 09:00 05/06/20 08:50 Atorvastatin Calcium 40 Mg Tab PO 40 mg DAILY CHRISTIAN Administration Bupropion HCl 150 mg 05/06/20 09:00 05/06/20 08:50 Bupropion 75 Mg Tab PO 150 mg DAILY CHRISTIAN Administration Carvedilol 12.5 mg 05/05/20 21:00 05/06/20 08:49 Carvedilol 6.25 Mg Tab PO 12.5 mg BID CHRISTIAN Administration Cholecalciferol 2,000 units 05/06/20 09:00 05/06/20 08:50 Cholecalciferol 1,000 Units (25 Mcg) Tab PO 2,000 units DAILY CHRISTIAN Administration Heparin Sodium (Porcine) 5,000 units 05/04/20 09:00 05/06/20 15:22 Heparin 5,000 Units/Ml Vial SC 5,000 units TID CHRISTIAN Administration Insulin Human Lispro 0 units 05/03/20 23:27 05/06/20 06:07 Humalog 300 Units/3 Ml Vial SC 2 unit .MILD SLIDING SCALE PRN Administration Mild Correctional Scale Insulin Human Lispro 0 units 05/03/20 23:27 05/05/20 21:38 Humalog 300 Units/3 Ml Vial SC 4 unit .BEDTIME SLIDING SC PRN Administration Bedtime Correctional Scale Losartan Potassium 100 mg 05/06/20 09:00 05/06/20 08:50 Losartan 25 Mg Tab PO 100 mg DAILY CHRISTIAN Administration Memantine 10 mg 05/05/20 21:00 05/06/20 08:50 Memantine Hcl 10 Mg Tab PO 10 mg BID CHRISTIAN Administration Pantoprazole Sodium 40 mg 05/06/20 09:00 05/06/20 08:50 Pantoprazole 40 Mg Tab PO 40 mg DAILY CHRISTIAN Administration Polyethylene Glycol 17 gm 05/06/20 09:00 05/06/20 08:51 Polyethylene Glycol 3350 17 Gm Packet PO 17 gm DAILY CHRISTIAN Administration Tamsulosin HCl 0.4 mg 05/06/20 09:00 05/06/20 08:50 Tamsulosin Hcl 0.4 Mg Cap PO 0.4 mg DAILY CHRISTIAN Administration Tizanidine HCl 4 mg 05/05/20 12:00 05/06/20 12:10 Tizanidine Hcl 4 Mg Tab PO 4 mg 0400,1200,2000 CHRISTIAN Administration Trazodone HCl 200 mg 05/05/20 21:00 05/05/20 21:36 Trazodone Hcl 50 Mg Tab PO 200 mg HS CHRISTIAN Administration - Exam Neck: negative: supple, symmetric, no JVD, no thyromegaly, no lymphadenopathy, no carotid bruit, JVD Heart: negative: RRR, no murmur, no gallops, no rubs, normal peripheral pulses, irregular, diminshed peripheral pulses, murmur present, II/IV, III/IV Respiratory: negative: CTAB, no wheezes, no rales, no ronchi, normal chest expansion, no tachypnea, normal percussion, rales, rhonchi, tachypneic, wheezes Hosp A/P - Plan Generalized weakness Possible new onset murmurecho in a.m. Continue to follow labs Patient is poor historian but reports missed dialysis treatment yesterday Heart murmur- possibly new Echo in a.m. Concerns for endocarditis in ERcurrently afebrile, no leukocytosiscontinue to monitor patient vitals along with lab work, continue IV antibiotics and consider cardiology consultation if deemed necessary after echo tomorrow Anemia Possibly from chronic disease Continue to monitor, no signs of bleeding Hypertension Restart patient home medications once reconciled End-stage renal disease on dialysis Consult nephrology in a.m. Patient may possibly need dialysis tomorrow as he missed yesterday Diabetes mellitus type 2 Monitor Accu-Cheks AC at bedtime Mild sliding scale insulin VTE prophylaxis in place with heparin CODE STATUS: Full Surrogate decision-maker is his nephew 05/05 patient's echo did not indicate any acute abnormalities. He is got no fever. No elevated WBCs. I do not believe this is endocarditis. We will stop vancomycin and ceftriaxone. PT OT to eval. There was some concerns for safety since APS was notified while patient was in the ER. We will get case management for possible short-term placement. / patient to be evaluated by PT/ OT. Will probably need some short-term placement. No fevers. Patient's antibiotics has been discontinued.
[2020-05-06] MEDS: traZODone HCl 50 MG TAB PO SCH (21:02)
[2020-05-07] MEDS: tiZANidine HCl 4 MG TAB PO SCH ×3 (04:04→20:33)
--- NOTE | 2020-05-07 08:15 | PDOC.NEPPN ---
- Subjective Encounter Date: 05/07/20 Subjective: No new problem. Feeling better. - Objective Vital Signs & Weight: Vital Signs (12 hours) Temp Pulse Resp BP BP Pulse Ox 05/07/20 04:04 87 190/81 H 05/07/20 04:00 98.5 F 87 19 190/81 H 92 L 05/06/20 21:02 141/77 H Weight Weight 144 lb 6.444 oz I&O: 05/06/20 05/07/20 05/08/20 06:59 06:59 06:59 Intake Total 1080 1080 Balance 1080 1080 Result Diagrams: 05/05/20 04:13 05/05/20 04:13 Additional Labs: Accuchecks 05/07/20 05/06/20 05/06/20 05:19 20:51 18:01 POC Glucose 119 H 97 85 05/06/20 12:03 POC Glucose 108 H Nephrology ROS - Medication Medications: Active Medications Generic Name Dose Route Start Last Admin Trade Name Freq PRN Reason Stop Dose Admin Atorvastatin Calcium 40 mg 05/06/20 09:00 05/06/20 08:50 Atorvastatin Calcium 40 Mg Tab PO 40 mg DAILY CHRISTIAN Administration Bupropion HCl 150 mg 05/06/20 09:00 05/06/20 08:50 Bupropion 75 Mg Tab PO 150 mg DAILY CHRISTIAN Administration Carvedilol 12.5 mg 05/05/20 21:00 05/06/20 21:02 Carvedilol 6.25 Mg Tab PO 12.5 mg BID CHRISTIAN Administration Cholecalciferol 2,000 units 05/06/20 09:00 05/06/20 08:50 Cholecalciferol 1,000 Units (25 Mcg) Tab PO 2,000 units DAILY CHRISTIAN Administration Heparin Sodium (Porcine) 5,000 units 05/04/20 09:00 05/06/20 21:01 Heparin 5,000 Units/Ml Vial SC 5,000 units TID CHRISTIAN Administration Insulin Human Lispro 0 units 05/03/20 23:27 05/06/20 06:07 Humalog 300 Units/3 Ml Vial SC 2 unit .MILD SLIDING SCALE PRN Administration Mild Correctional Scale Insulin Human Lispro 0 units 05/03/20 23:27 05/05/20 21:38 Humalog 300 Units/3 Ml Vial SC 4 unit .BEDTIME SLIDING SC PRN Administration Bedtime Correctional Scale Labetalol HCl 20 mg 05/04/20 04:07 05/07/20 04:04 Labetalol Hcl 100 Mg/20 Ml Vial SLOW IVP 20 mg Q4H PRN Administration SBP > 180 and HR >/= 70 Losartan Potassium 100 mg 05/06/20 09:00 05/06/20 08:50 Losartan 25 Mg Tab PO 100 mg DAILY CHRISTIAN Administration Memantine 10 mg 05/05/20 21:00 05/06/20 21:02 Memantine Hcl 10 Mg Tab PO 10 mg BID CHRISTIAN Administration Pantoprazole Sodium 40 mg 05/06/20 09:00 05/06/20 08:50 Pantoprazole 40 Mg Tab PO 40 mg DAILY CHRISTIAN Administration Polyethylene Glycol 17 gm 05/06/20 09:00 05/06/20 08:51 Polyethylene Glycol 3350 17 Gm Packet PO 17 gm DAILY CHRISTIAN Administration Tamsulosin HCl 0.4 mg 05/06/20 09:00 05/06/20 08:50 Tamsulosin Hcl 0.4 Mg Cap PO 0.4 mg DAILY CHRISTIAN Administration Tizanidine HCl 4 mg 05/05/20 12:00 05/07/20 04:04 Tizanidine Hcl 4 Mg Tab PO 4 mg 0400,1200,2000 CHRISTIAN Administration Trazodone HCl 200 mg 05/05/20 21:00 05/06/20 21:02 Trazodone Hcl 50 Mg Tab PO 200 mg HS CHRISTIAN Administration - Exam General Appearance: awake alert Eye: anicteric sclera ENT: normocephalic atraumatic, moist mucosa Neck: symmetric Respiratory: no wheezes, no rales, no ronchi, normal chest expansion, no tachypnea Cardiovascular: RRR Gastrointestinal: non-tender, non-distended, normal bowel sounds Extremities: no edema Neurological: CN's grossly intact, no focal deficits PSYCH: A&O x 3 Nephrology Results - Labs Result Diagrams: 05/05/20 04:13 05/05/20 04:13 Lab results: WBC 6.0 thou/uL (4.8-10.8) 05/05/20 04:13 Hgb 8.7 g/dL (14.0-18.0) L 05/05/20 04:13 Hct 27.4 % (42.0-52.0) L 05/05/20 04:13 MCV 99.5 fL (78.0-98.0) H 05/05/20 04:13 Plt Count 144 thou/uL (130-400) 05/05/20 04:13 Neutrophils % 66.4 % (42.0-75.0) 05/05/20 04:13 Sodium 140 mmol/L (136-145) 05/05/20 04:13 Potassium 3.9 mmol/L (3.5-5.1) 05/05/20 04:13 Chloride 103 mmol/L (98-107) 05/05/20 04:13 Carbon Dioxide 27 mmol/L (23-31) 05/05/20 04:13 BUN 14 mg/dL (8.4-25.7) 05/05/20 04:13 Creatinine 4.35 mg/dL (0.7-1.3) H 05/05/20 04:13 Glucose 77 mg/dL (83-110) L 05/05/20 04:13 Lactic Acid 1.4 mmol/L (0.5-2.2) 05/03/20 23:20 Calcium 8.0 mg/dL (7.8-10.44) 05/05/20 04:13 Total Bilirubin 0.5 mg/dL (0.2-1.2) 05/03/20 21:17 AST 12 U/L (5-34) 05/03/20 21:17 ALT 7 U/L (8-55) L 05/03/20 21:17 Alkaline Phosphatase 163 U/L (40-110) H 05/03/20 21:17 Troponin I 0.023 ng/mL (< 0.028) 05/03/20 19:52 Serum Total Protein 6.7 g/dL (5.8-8.1) 05/03/20 21:17 Albumin 3.1 g/dL (3.4-4.8) L 05/03/20 21:17 Lipase 56 U/L (8-78) 05/03/20 21:17 Sodium 140 mmol/L (136-145) 05/05/20 04:13 Potassium 3.9 mmol/L (3.5-5.1) 05/05/20 04:13 Chloride 103 mmol/L (98-107) 05/05/20 04:13 Carbon Dioxide 27 mmol/L (23-31) 05/05/20 04:13 Anion Gap 14 mmol/L (10-20) 05/05/20 04:13 BUN 14 mg/dL (8.4-25.7) 05/05/20 04:13 Creatinine 4.35 mg/dL (0.7-1.3) H 05/05/20 04:13 Glucose 77 mg/dL (83-110) L 05/05/20 04:13 Calcium 8.0 mg/dL (7.8-10.44) 05/05/20 04:13 Albumin 3.1 g/dL (3.4-4.8) L 05/03/20 21:17 Nephrology AP PN - Plan ESRD on HD on MWF. Last HD was on 05/04/20 Anemia In CKD. DM on treatment HTN: Patient has labile BP. BP is up. Physical deconditioning. recurrent. Plan. For HD today. See EMR for order Restart nifedipine Continue losartan. Discontinue Hydralazine even at discharge Continue ASHA. Can be discharged from nephrology after HD
[2020-05-07] MEDS ORDERED: NIFEdipine XL 30 MG TAB PO SCH ×2 (09:00→15:30)
[2020-05-07] MEDS ORDERED: Heparin 10,000 UNITS/ 10 ML VIAL ONE (11:32)
[2020-05-07] MEDS: Tamsulosin HCl 0.4 MG CAP PO SCH (13:09)
[2020-05-07] MEDS: buPROPion 75 MG TAB PO SCH (13:10)
[2020-05-07] MEDS: Losartan 25 MG TAB PO SCH (13:10)
[2020-05-07] MEDS: Cholecalciferol 1,000 UNITS (25 MCG) TAB PO SCH (13:10)
[2020-05-07] MEDS: Atorvastatin Calcium 40 MG TAB PO SCH (13:11)
[2020-05-07] MEDS: Carvedilol 6.25 MG TAB PO SCH ×2 (13:11→20:33)
[2020-05-07] MEDS: Polyethylene Glycol 3350 17 GM Packet PO SCH (13:12)
[2020-05-07] MEDS: Heparin 5,000 UNITS/ML VIAL SC SCH ×3 (13:12→20:32)
--- NOTE | 2020-05-07 15:05 | PDOC.DS.DS ---
Provider - Provider Date of Admission: 05/04/20 14:06 Date of Discharge: 05/07/20 Admitting Provider: Jose Mc Primary Care Physician: GINNY JANG MD Course - Hospital Course Hospital Course: Patient is 75-year-old male with a history of end-stage renal disease on dialysis who came into the hospital with complaints of weakness. Patient recently is getting over his Covid illness. He was noted to have a murmur he had an echocardiogram which did not show any acute abnormalities. Patient initially was treated for possible endocarditis however he did not have a fever no elevated white count and this time his antibiotics was discontinued he was watched for more than 24 hours without antibiotics and he did well. At this time he will be discharged home he will follow-up with his primary. There was some concerns for the patient as safety issues APS was called by the nursing staff in the ER. I did speak with nephrology who states that patient most likely in the future will need retirement facility since he has been in and out of the hospital multiple times. Patient was observed by physical therapy home with home health Resuscitation Status: 05/03/20 23:27 Resuscitation Status Routine Co-Sign Provider: Resuscitation Status: FULL: Full Resuscitation Discussed with: pt - Labs Lab Results: 05/05/20 04:13 05/05/20 04:13 Microbiology - Entire Visit 05/03/20 21:17 Venous blood - Left Hand Blood Culture - Preliminary NO GROWTH AT 48 HOURS 05/03/20 20:33 Venous blood - Left Hand Blood Culture - Preliminary NO GROWTH AT 48 HOURS - Physical Exam Vitals: Vital Signs (12 hours) Temp Pulse Resp BP BP Pulse Ox 05/07/20 13:11 73 190/81 H 05/07/20 12:55 98.8 F 98 16 163/87 H 95 05/07/20 07:35 99.0 F 73 16 170/87 H 94 L 05/07/20 04:04 87 190/81 H 05/07/20 04:00 98.5 F 87 19 190/81 H 92 L Weight Weight 144 lb 6.444 oz Physical Exam: The patient was seen and examined on the day of discharge. Problem - Discharge Plan Assessment: 1. Generalized weakness #2 concerns for endocarditis ruled out #3 end-stage renal disease on dialysis Plan - Discharge Medications Home Medications: Medication Instructions Recorded Confirmed Type Atorvastatin Calcium 40 mg PO DAILY 05/04/20 05/04/20 History Bisacodyl [Laxative] 5 mg PO PRN PRN 05/04/20 05/04/20 History Carvedilol [Coreg] 12.5 mg PO BID 05/04/20 05/04/20 History Cholecalciferol (Vitamin D3) 2,000 unit PO DAILY 05/04/20 05/04/20 History [Vitamin D3] Losartan [Cozaar] 100 mg PO DAILY 05/04/20 05/04/20 History Memantine HCl [Namenda] 10 mg PO BID 05/04/20 05/04/20 History NIFEdipine [Procardia XL] 60 mg PO DAILY 05/04/20 05/04/20 History Pantoprazole [Protonix] 40 mg PO DAILY 05/04/20 05/04/20 History Polyethylene Glycol 3350 [Miralax] 17 gm PO DAILY 05/04/20 05/04/20 History Tamsulosin HCl [Flomax] 0.4 mg PO DAILY 05/04/20 05/04/20 History buPROPion [Wellbutrin] 150 mg PO DAILY 05/04/20 05/04/20 History tiZANidine HCl [Tizanidine HCl] 4 mg PO Q8H 05/04/20 05/04/20 History traZODone HCl [Trazodone HCl] 200 mg PO HS 05/04/20 05/04/20 History Allergies: No Known Allergies Allergy (Verified 05/04/20 00:59) - Discharge Instructions Activity:: Activity as Tolerated Nourishment:: Renal Diet - Follow up Plan Referrals: [facility] [Outside] - 1 Day ([facility] nursing, Physical Therapy and Occupational Therapy) GINNY JANG MD [Primary Care Provider] - 3 Days (Please call to schedule a follow up appointment ) Zaheer Barnes MD [Active] - 14 Days (Please continue to follow up with your normal [facility] or Dr. Barnes) Disposition: HOME Quality - Care Measures CORE MEASURES:: N/A
[2020-05-07] MEDS: traZODone HCl 50 MG TAB PO SCH (20:32)
[2020-05-08] MEDS: tiZANidine HCl 4 MG TAB PO SCH ×3 (04:57→19:52)
[2020-05-08] MEDS: Carvedilol 6.25 MG TAB PO SCH ×2 (08:09→19:53)
[2020-05-08] MEDS: Cholecalciferol 1,000 UNITS (25 MCG) TAB PO SCH (08:10)
[2020-05-08] MEDS: NIFEdipine XL 30 MG TAB PO SCH (08:10)
[2020-05-08] MEDS: Heparin 5,000 UNITS/ML VIAL SC SCH ×3 (08:11→19:53)
[2020-05-08] MEDS: Tamsulosin HCl 0.4 MG CAP PO SCH (08:11)
[2020-05-08] MEDS: Atorvastatin Calcium 40 MG TAB PO SCH (08:11)
[2020-05-08] MEDS: Losartan 25 MG TAB PO SCH (08:11)
[2020-05-08] MEDS: buPROPion 75 MG TAB PO SCH (08:11)
[2020-05-08] MEDS: Polyethylene Glycol 3350 17 GM Packet PO SCH (08:12)
--- NOTE | 2020-05-08 08:35 | PDOC.NEPPN ---
- Subjective Encounter Date: 05/08/20 Subjective: No new problem. Didnt go yesterday as care reported that he cannot take care of him. Last HD was yesterday. No nausea or vomiting. - Objective Vital Signs & Weight: Vital Signs (12 hours) Temp Pulse Resp BP BP Pulse Ox 05/08/20 08:10 91 132/63 05/08/20 08:09 132/63 05/08/20 08:00 98 F 91 16 132/63 95 05/08/20 03:40 98.6 F 90 20 123/69 93 L 05/07/20 20:33 118/64 Weight Weight 143 lb 4.807 oz I&O: 05/07/20 05/08/20 05/09/20 06:59 06:59 06:59 Intake Total 1080 740 Balance 1080 740 Result Diagrams: 05/05/20 04:13 05/05/20 04:13 Additional Labs: Accuchecks 05/08/20 05/07/20 05/07/20 05:55 20:24 17:20 POC Glucose 76 128 H 131 H 05/06/20 05/05/20 05:39 21:11 POC Glucose 90 348 H Nephrology ROS - Medication Medications: Active Medications Generic Name Dose Route Start Last Admin Trade Name Freq PRN Reason Stop Dose Admin Atorvastatin Calcium 40 mg 05/06/20 09:00 05/08/20 08:11 Atorvastatin Calcium 40 Mg Tab PO 40 mg DAILY CHRISTIAN Administration Bupropion HCl 150 mg 05/06/20 09:00 05/08/20 08:11 Bupropion 75 Mg Tab PO 150 mg DAILY CHRISTIAN Administration Carvedilol 12.5 mg 05/05/20 21:00 05/08/20 08:09 Carvedilol 6.25 Mg Tab PO 12.5 mg BID CHRISTIAN Administration Cholecalciferol 2,000 units 05/06/20 09:00 05/08/20 08:10 Cholecalciferol 1,000 Units (25 Mcg) Tab PO 2,000 units DAILY CHRISTIAN Administration Heparin Sodium (Porcine) 5,000 units 05/04/20 09:00 05/08/20 08:11 Heparin 5,000 Units/Ml Vial SC 5,000 units TID CHRISTIAN Administration Insulin Human Lispro 0 units 05/03/20 23:27 05/06/20 06:07 Humalog 300 Units/3 Ml Vial SC 2 unit .MILD SLIDING SCALE PRN Administration Mild Correctional Scale Insulin Human Lispro 0 units 05/03/20 23:27 05/05/20 21:38 Humalog 300 Units/3 Ml Vial SC 4 unit .BEDTIME SLIDING SC PRN Administration Bedtime Correctional Scale Labetalol HCl 20 mg 05/04/20 04:07 05/07/20 04:04 Labetalol Hcl 100 Mg/20 Ml Vial SLOW IVP 20 mg Q4H PRN Administration SBP > 180 and HR >/= 70 Losartan Potassium 100 mg 05/06/20 09:00 05/08/20 08:11 Losartan 25 Mg Tab PO 100 mg DAILY CHRISTIAN Administration Memantine 10 mg 05/05/20 21:00 05/08/20 08:10 Memantine Hcl 10 Mg Tab PO 10 mg BID CHRISTIAN Administration Nifedipine 60 mg 05/08/20 05:27 05/08/20 08:10 Nifedipine Xl 30 Mg Tab PO 60 mg DAILY CHRISTIAN Administration Pantoprazole Sodium 40 mg 05/06/20 09:00 05/08/20 08:10 Pantoprazole 40 Mg Tab PO 40 mg DAILY CHRISTIAN Administration Polyethylene Glycol 17 gm 05/06/20 09:00 05/08/20 08:12 Polyethylene Glycol 3350 17 Gm Packet PO 17 gm DAILY CHRISTIAN Administration Tamsulosin HCl 0.4 mg 05/06/20 09:00 05/08/20 08:11 Tamsulosin Hcl 0.4 Mg Cap PO 0.4 mg DAILY CHRISTIAN Administration Tizanidine HCl 4 mg 05/05/20 12:00 05/08/20 04:57 Tizanidine Hcl 4 Mg Tab PO 4 mg 0400,1200,2000 CHRISTIAN Administration Trazodone HCl 200 mg 05/05/20 21:00 05/07/20 20:32 Trazodone Hcl 50 Mg Tab PO 200 mg HS CHRISTIAN Administration - Exam General Appearance: awake alert Eye: anicteric sclera ENT: normocephalic atraumatic Neck: supple, symmetric, no JVD Respiratory: no wheezes, no rales, no ronchi, normal chest expansion, no tachypnea Cardiovascular: RRR, murmur present Gastrointestinal: soft, non-tender, non-distended, normal bowel sounds Extremities: no edema Neurological: CN's grossly intact PSYCH: A&O x 3 Nephrology Results - Labs Result Diagrams: 05/05/20 04:13 05/05/20 04:13 Lab results: WBC 6.0 thou/uL (4.8-10.8) 05/05/20 04:13 Hgb 8.7 g/dL (14.0-18.0) L 05/05/20 04:13 Hct 27.4 % (42.0-52.0) L 05/05/20 04:13 MCV 99.5 fL (78.0-98.0) H 05/05/20 04:13 Plt Count 144 thou/uL (130-400) 05/05/20 04:13 Neutrophils % 66.4 % (42.0-75.0) 05/05/20 04:13 Sodium 140 mmol/L (136-145) 05/05/20 04:13 Potassium 3.9 mmol/L (3.5-5.1) 05/05/20 04:13 Chloride 103 mmol/L (98-107) 05/05/20 04:13 Carbon Dioxide 27 mmol/L (23-31) 05/05/20 04:13 BUN 14 mg/dL (8.4-25.7) 05/05/20 04:13 Creatinine 4.35 mg/dL (0.7-1.3) H 05/05/20 04:13 Glucose 77 mg/dL (83-110) L 05/05/20 04:13 Lactic Acid 1.4 mmol/L (0.5-2.2) 05/03/20 23:20 Calcium 8.0 mg/dL (7.8-10.44) 05/05/20 04:13 Total Bilirubin 0.5 mg/dL (0.2-1.2) 05/03/20 21:17 AST 12 U/L (5-34) 05/03/20 21:17 ALT 7 U/L (8-55) L 05/03/20 21:17 Alkaline Phosphatase 163 U/L (40-110) H 05/03/20 21:17 Troponin I 0.023 ng/mL (< 0.028) 05/03/20 19:52 Serum Total Protein 6.7 g/dL (5.8-8.1) 05/03/20 21:17 Albumin 3.1 g/dL (3.4-4.8) L 05/03/20 21:17 Lipase 56 U/L (8-78) 05/03/20 21:17 Sodium 140 mmol/L (136-145) 05/05/20 04:13 Potassium 3.9 mmol/L (3.5-5.1) 05/05/20 04:13 Chloride 103 mmol/L (98-107) 05/05/20 04:13 Carbon Dioxide 27 mmol/L (23-31) 05/05/20 04:13 Anion Gap 14 mmol/L (10-20) 05/05/20 04:13 BUN 14 mg/dL (8.4-25.7) 05/05/20 04:13 Creatinine 4.35 mg/dL (0.7-1.3) H 05/05/20 04:13 Glucose 77 mg/dL (83-110) L 05/05/20 04:13 Calcium 8.0 mg/dL (7.8-10.44) 05/05/20 04:13 Albumin 3.1 g/dL (3.4-4.8) L 05/03/20 21:17 Nephrology AP PN - Plan ESRD on HD on MWF. Last HD was on 05/07/20 Anemia In CKD. DM on treatment HTN: Control is suboptimal. Physical deconditioning. recurrent. Plan. Increase nifedipine to home dose of 60 daily. Continue losartan and carvedilol. Hydralazine remained discontinued. Continue ASHA. Can be discharged from nephrology once placement is concluded. Will continue HD according to outpatient HD schedule as long as patient remained in house.
--- NOTE | 2020-05-08 16:11 | PDOC.HOSPP ---
- Subjective Encounter Date: 05/08/20 Encounter Time: 10:30 Subjective: PT up in bed no complains - Objective Vital Signs & Weight: Vital Signs (12 hours) Temp Pulse Pulse Pulse Resp BP BP 05/08/20 15:38 98.6 F 78 15 05/08/20 12:59 98.5 F 82 16 05/08/20 10:30 63 79 123/63 05/08/20 08:11 05/08/20 08:10 91 132/63 05/08/20 08:09 132/63 05/08/20 08:08 74 132/63 05/08/20 08:00 98 F 91 16 BP BP Pulse Ox Pulse Ox Pulse Ox 05/08/20 15:38 113/60 93 L 05/08/20 12:59 119/65 97 05/08/20 10:30 120/64 93 L 90 L 05/08/20 08:11 95 05/08/20 08:10 05/08/20 08:09 05/08/20 08:08 96 05/08/20 08:00 132/63 95 Weight Weight 143 lb 4.807 oz I&O: 05/07/20 05/08/20 05/09/20 06:59 06:59 06:59 Intake Total 1080 740 477 Balance 1080 740 477 Result Diagrams: 05/05/20 04:13 05/05/20 04:13 Additional Labs: Accuchecks 05/08/20 05/08/20 05/07/20 10:54 05:55 20:24 POC Glucose 96 76 128 H 05/07/20 17:20 POC Glucose 131 H Hospitalist ROS - Review of Systems Cardiovascular: denies: chest pain, palpitations, orthopnea, paroxysmal noc. dyspnea, edema, light headedness, other Gastrointestinal: denies: nausea, vomiting, abdominal pain, diarrhea, constipation, melena, hematochezia, other Genitourinary: denies: dysuria, frequency, incontinence, hematuria, retention, other - Medication Medications: Active Medications Generic Name Dose Route Start Last Admin Trade Name Freq PRN Reason Stop Dose Admin Atorvastatin Calcium 40 mg 05/06/20 09:00 05/08/20 08:11 Atorvastatin Calcium 40 Mg Tab PO 40 mg DAILY [facility]IAN Administration Bupropion HCl 150 mg 05/06/20 09:00 05/08/20 08:11 Bupropion 75 Mg Tab PO 150 mg DAILY [facility]IAN Administration Carvedilol 12.5 mg 05/05/20 21:00 05/08/20 08:09 Carvedilol 6.25 Mg Tab PO 12.5 mg BID [facility]STIAN Administration Cholecalciferol 2,000 units 05/06/20 09:00 05/08/20 08:10 Cholecalciferol 1,000 Units (25 Mcg) Tab PO 2,000 units DAILY [facility]STIAN Administration Heparin Sodium (Porcine) 5,000 units 05/04/20 09:00 05/08/20 14:12 Heparin 5,000 Units/Ml Vial SC 5,000 units TID CH[facility]STIAN Administration Insulin Human Lispro 0 units 05/03/20 23:27 05/06/20 06:07 Humalog 300 Units/3 Ml Vial SC 2 unit .MILD SLIDING SCALE PRN Administration Mild Correctional Scale Insulin Human Lispro 0 units 05/03/20 23:27 05/05/20 21:38 Humalog 300 Units/3 Ml Vial SC 4 unit .BEDTIME SLIDING SC PRN Administration Bedtime Correctional Scale Labetalol HCl 20 mg 05/04/20 04:07 05/07/20 04:04 Labetalol Hcl 100 Mg/20 Ml Vial SLOW IVP 20 mg Q4H PRN Administration SBP > 180 and HR >/= 70 Losartan Potassium 100 mg 05/06/20 09:00 05/08/20 08:11 Losartan 25 Mg Tab PO 100 mg DAILY [facility]STIAN Administration Memantine 10 mg 05/05/20 21:00 05/08/20 08:10 Memantine Hcl 10 Mg Tab PO 10 mg BID [facility] Administration Nifedipine 60 mg 05/08/20 05:27 05/08/20 08:10 Nifedipine Xl 30 Mg Tab PO 60 mg DAILY [facility]IAN Administration Pantoprazole Sodium 40 mg 05/06/20 09:00 05/08/20 08:10 Pantoprazole 40 Mg Tab PO 40 mg DAILY [facility]IAN Administration Polyethylene Glycol 17 gm 05/06/20 09:00 05/08/20 08:12 Polyethylene Glycol 3350 17 Gm Packet PO 17 gm DAILY [facility]STIAN Administration Tamsulosin HCl 0.4 mg 05/06/20 09:00 05/08/20 08:11 Tamsulosin Hcl 0.4 Mg Cap PO 0.4 mg DAILY [facility] Administration Tizanidine HCl 4 mg 05/05/20 12:00 05/08/20 13:00 Tizanidine Hcl 4 Mg Tab PO 4 mg 0400,1200,2000 [facility]IAN Administration Trazodone HCl 200 mg 05/05/20 21:00 05/07/20 20:32 Trazodone Hcl 50 Mg Tab PO 200 mg HS CHRISTIAN Administration - Exam Neck: negative: supple, symmetric, no JVD, no thyromegaly, no lymphadenopathy, no carotid bruit, JVD Heart: negative: RRR, no murmur, no gallops, no rubs, normal peripheral pulses, irregular, diminshed peripheral pulses, murmur present, II/IV, III/IV Respiratory: negative: CTAB, no wheezes, no rales, no ronchi, normal chest expansion, no tachypnea, normal percussion, rales, rhonchi, tachypneic, wheezes Gastrointestinal: negative: soft, non-tender, non-distended, normal bowel sounds, no palpable masses, no hepatomegaly, no splenomegaly, no bruit, no guarding, no rigidity, tender to palpation, distended, diminished bowl sounds, voluntary guarding Hosp A/P - Plan Generalized weakness Possible new onset murmurecho in a.m. Continue to follow labs Patient is poor historian but reports missed dialysis treatment yesterday Heart murmur- possibly new Echo in a.m. Concerns for endocarditis in ERcurrently afebrile, no leukocytosiscontinue to monitor patient vitals along with lab work, continue IV antibiotics and consider cardiology consultation if deemed necessary after echo tomorrow Anemia Possibly from chronic disease Continue to monitor, no signs of bleeding Hypertension Restart patient home medications once reconciled End-stage renal disease on dialysis Consult nephrology in a.m. Patient may possibly need dialysis tomorrow as he missed yesterday Diabetes mellitus type 2 Monitor Accu-Cheks AC at bedtime Mild sliding scale insulin VTE prophylaxis in place with heparin CODE STATUS: Full Surrogate decision-maker is his nephew 05/05 patient's echo did not indicate any acute abnormalities. He is got no fever. No elevated WBCs. I do not believe this is endocarditis. We will stop vancomycin and ceftriaxone. PT OT to eval. There was some concerns for safety since APS was notified while patient was in the ER. We will get case management for possible short-term placement. 05/06 patient to be evaluated by PT/ OT. Will probably need some short-term placement. No fevers. Patient's antibiotics has been discontinued. 05/08 patient up in bed no issues. Waiting on placement for [facility] facility
[2020-05-08] MEDS: traZODone HCl 50 MG TAB PO SCH (19:53)
[2020-05-09] MEDS: tiZANidine HCl 4 MG TAB PO SCH ×3 (05:11→20:58)
[2020-05-09 09:07] LABS: Hemoglobin 8.9 g/dL (14.0-18.0); Mean Corpuscular HGB CONC 29.5 g/dL (32.0-36.0); Mean Corpuscular Hemoglobin 29.6 pg (27.0-31.0); Mean Platelet Volume 8.8 fL (7.4-10.4); Platelet Count 176 thou/uL (130-400); RBC Distribution Width 15.2 % (11.5-14.5); Red Blood Cell (RBC) Count 3.02 mill/uL (4.70-6.10); White Blood Cell (WBC) Count 5.1 thou/uL (4.8-10.8)
[2020-05-09 09:13] LABS: Anion Gap 17 mmol/L (10-20); BUN (Urea Nitrogen) 45 mg/dL (8.4-25.7); Calc. Creatinine Clearance 8 mL/min (70-130); Calcium 8.4 mg/dL (7.8-10.44); Carbon Dioxide 27 mmol/L (23-31); Chloride 99 mmol/L (98-107); Glucose 80 mg/dL (83-110); Potassium 5.5 mmol/L (3.5-5.1); Sodium 137 mmol/L (136-145)
[2020-05-09 09:30] LABS: Band 4 % (5-11); Eosinophils 5 % (0-10); Lymphocytes 22 % (21-51); MDiff Complete? YES; Macrocytosis SLIGHT = 6-15 cells (100X) (0-5/hpf); Monocytes 4 % (0-10); Myelocyte 1 % (0-0); Neutrophil 63 % (42-75); Ovalocytes SLIGHT = 2-5 cells (100X) (0-1/hpf); Platelet Morphology Comment Appears Adequate; Polychromasia SLIGHT = 2-3 cells (100X) (0-2/hpf)
[2020-05-09] MEDS: Carvedilol 6.25 MG TAB PO SCH ×2 (10:14→20:58)
[2020-05-09] MEDS: Heparin 5,000 UNITS/ML VIAL SC SCH ×3 (10:15→20:59)
--- NOTE | 2020-05-09 14:41 | PDOC.HOSPP ---
- Subjective Encounter Date: 05/09/20 Encounter Time: 11:00 Subjective: pt up in bed no complains - Objective Vital Signs & Weight: Vital Signs (12 hours) Temp Pulse Resp BP Pulse Ox 05/09/20 07:41 98.5 F 95 18 141/69 H 93 L 05/09/20 04:00 98.9 F 94 14 123/65 95 Weight Weight 143 lb 4.807 oz I&O: 05/08/20 05/09/20 05/10/20 06:59 06:59 06:59 Intake Total 740 1077 360 Balance 740 1077 360 Result Diagrams: 05/09/20 08:38 05/09/20 08:38 Additional Labs: Accuchecks 05/09/20 05/08/20 05/08/20 05:23 19:53 16:19 POC Glucose 77 126 H 133 H Hospitalist ROS - Review of Systems Cardiovascular: denies: chest pain, palpitations, orthopnea, paroxysmal noc. dyspnea, edema, light headedness, other Gastrointestinal: denies: nausea, vomiting, abdominal pain, diarrhea, cons tipation, melena, hematochezia, other Genitourinary: denies: dysuria, frequency, incontinence, hematuria, retention, other - Medication Medications: Active Medications Generic Name Dose Route Start Last Admin Trade Name Isaacq PRN Reason Stop Dose Admin Atorvastatin Calcium 40 mg 05/06/20 09:00 05/08/20 08:11 Atorvastatin Calcium 40 Mg Tab PO 40 mg DAILY [facility]STIAN Administration Bupropion HCl 150 mg 05/06/20 09:00 05/08/20 08:11 Bupropion 75 Mg Tab PO 150 mg DAILY [facility] Administration Carvedilol 12.5 mg 05/05/20 21:00 05/09/20 10:14 Carvedilol 6.25 Mg Tab PO Not Given BID [facility]IAN Cholecalciferol 2,000 units 05/06/20 09:00 05/08/20 08:10 Cholecalciferol 1,000 Units (25 Mcg) Tab PO 2,000 units DAILY [facility] Administration Heparin Sodium (Porcine) 5,000 units 05/04/20 09:00 05/09/20 10:15 Heparin 5,000 Units/Ml Vial SC Not Given TID [facility] Insulin Human Lispro 0 units 05/03/20 23:27 05/06/20 06:07 Humalog 300 Units/3 Ml Vial SC 2 unit .MILD SLIDING SCALE PRN Administration Mild Correctional Scale Insulin Human Lispro 0 units 05/03/20 23:27 05/05/20 21:38 Humalog 300 Units/3 Ml Vial SC 4 unit .BEDTIME SLIDING SC PRN Administration Bedtime Correctional Scale Labetalol HCl 20 mg 05/04/20 04:07 05/07/20 04:04 Labetalol Hcl 100 Mg/20 Ml Vial SLOW IVP 20 mg Q4H PRN Administration SBP > 180 and HR >/= 70 Losartan Potassium 100 mg 05/06/20 09:00 05/08/20 08:11 Losartan 25 Mg Tab PO 100 mg DAILY [facility] Administration Memantine 10 mg 05/05/20 21:00 05/09/20 10:15 Memantine Hcl 10 Mg Tab PO Not Given BID [facility]IAN Nifedipine 60 mg 05/08/20 05:27 05/08/20 08:10 Nifedipine Xl 30 Mg Tab PO 60 mg DAILY [facility] Administration Pantoprazole Sodium 40 mg 05/06/20 09:00 05/08/20 08:10 Pantoprazole 40 Mg Tab PO 40 mg DAILY [facility] Administration Polyethylene Glycol 17 gm 05/06/20 09:00 05/08/20 08:12 Polyethylene Glycol 3350 17 Gm Packet PO 17 gm DAILY [facility] Administration Tamsulosin HCl 0.4 mg 05/06/20 09:00 05/08/20 08:11 Tamsulosin Hcl 0.4 Mg Cap PO 0.4 mg DAILY [facility] Administration Tizanidine HCl 4 mg 05/05/20 12:00 05/09/20 05:11 Tizanidine Hcl 4 Mg Tab PO Not Given 0400,1200,2000 [facility] Trazodone HCl 200 mg 05/05/20 21:00 05/08/20 19:53 Trazodone Hcl 50 Mg Tab PO 200 mg HS [facility]RISTIAN Administration - Exam Heart: negative: RRR, no murmur, no gallops, no rubs, normal peripheral pulses, irregular, diminshed peripheral pulses, murmur present, II/IV, III/IV Respiratory: negative: CTAB, no wheezes, no rales, no ronchi, normal chest expansion, no tachypnea, normal percussion, rales, rhonchi, tachypneic, wheezes Gastrointestinal: negative: soft, non-tender, non-distended, normal bowel sounds, no palpable masses, no hepatomegaly, no splenomegaly, no bruit, no guarding, no rigidity, tender to palpation, distended, diminished bowl sounds, voluntary guarding Hosp A/P - Plan Generalized weakness Possible new onset murmurecho in a.m. Continue to follow labs Patient is poor historian but reports missed dialysis treatment yesterday Heart murmur- possibly new Echo in a.m. Concerns for endocarditis in ERcurrently afebrile, no leukocytosiscontinue to monitor patient vitals along with lab work, continue IV antibiotics and consider cardiology consultation if deemed necessary after echo tomorrow Anemia Possibly from chronic disease Continue to monitor, no signs of bleeding Hypertension Restart patient home medications once reconciled End-stage renal disease on dialysis Consult nephrology in a.m. Patient may possibly need dialysis tomorrow as he missed yesterday Diabetes mellitus type 2 Monitor Accu-Cheks AC at bedtime Mild sliding scale insulin VTE prophylaxis in place with heparin CODE STATUS: Full Surrogate decision-maker is his nephew 05/05 patient's echo did not indicate any acute abnormalities. He is got no fever. No elevated WBCs. I do not believe this is endocarditis. We will stop vancomycin and ceftriaxone. PT OT to eval. There was some concerns for safety since [facility]PS was notified while patient was in the ER. We will get case management for possible short-term placement. 1/ patient to be evaluated by PT/ OT. Will probably need some short-term placement. No fevers. Patient's antibiotics has been discontinued. 05/08 patient up in bed no issues. Waiting on placement for halfway facility 05/09 pt up in bed no complains. needs placement.
[2020-05-09] MEDS: Losartan 25 MG TAB PO SCH (15:19)
[2020-05-09] MEDS: NIFEdipine XL 30 MG TAB PO SCH (15:19)
[2020-05-09] MEDS: Cholecalciferol 1,000 UNITS (25 MCG) TAB PO SCH (15:20)
[2020-05-09] MEDS: buPROPion 75 MG TAB PO SCH (15:21)
[2020-05-09] MEDS: Polyethylene Glycol 3350 17 GM Packet PO SCH (15:22)
[2020-05-09] MEDS: Tamsulosin HCl 0.4 MG CAP PO SCH (15:22)
[2020-05-09] MEDS: Atorvastatin Calcium 40 MG TAB PO SCH (15:26)
--- NOTE | 2020-05-09 17:55 | PRG ---
DATE OF SERVICE: 05/09/2020 OBJECTIVE: VITAL SIGNS: The patient is noted with the following vital signs; afebrile, temperature 98.5, pulse 84, respiratory rate of 16, O2 saturations of 95%, blood pressure 147/77. HEENT EXAMINATION: Unremarkable. CARDIOVASCULAR SYSTEM: First and second heart sounds were heard. RESPIRATORY SYSTEM: Clear to auscultation. DIGESTIVE SYSTEM: Revealed a benign abdomen. EXTREMITIES: No peripheral edema. SKIN EXAMINATION: No new gross rash. LYMPHATICS: No peripheral lymphadenopathy. LABORATORY INVESTIGATION: Showed a hemoglobin of 8.9. Chemistry showed creatinine of 7.06 with potassium of 5.5. IMPRESSION: 1. End-stage renal disease, on hemodialysis. 2. Anemia of chronic kidney disease. 3. Hypertension. PLAN: 1. The patient to be dialyzed in accordance with the schedule. 2. Consider erythropoiesis stimulating agents to address the patient's anemia of chronic kidney disease. 3. Awaiting placement and from the renal standpoint, patient okay to be discharged any time placement is arranged. Job ID: [id number]
[2020-05-09] MEDS ORDERED: EPOETIN ALFA-EPBX (ESRD) 10,000 UNIT/ML VIAL SC SCH ×2 (18:00→21:00)
[2020-05-09] MEDS: traZODone HCl 50 MG TAB PO SCH (20:59)
[2020-05-10] MEDS: tiZANidine HCl 4 MG TAB PO SCH ×3 (04:18→23:10)
[2020-05-10] MEDS: NIFEdipine XL 30 MG TAB PO SCH (10:19)
[2020-05-10] MEDS: Losartan 25 MG TAB PO SCH (10:20)
[2020-05-10] MEDS: Carvedilol 6.25 MG TAB PO SCH ×2 (10:20→23:10)
[2020-05-10] MEDS: Tamsulosin HCl 0.4 MG CAP PO SCH (10:20)
[2020-05-10] MEDS: Polyethylene Glycol 3350 17 GM Packet PO SCH (10:21)
[2020-05-10] MEDS: buPROPion 75 MG TAB PO SCH (10:21)
[2020-05-10] MEDS: Cholecalciferol 1,000 UNITS (25 MCG) TAB PO SCH (10:21)
[2020-05-10] MEDS: Atorvastatin Calcium 40 MG TAB PO SCH (10:21)
[2020-05-10] MEDS: Heparin 5,000 UNITS/ML VIAL SC SCH ×2 (10:22→23:10)
--- NOTE | 2020-05-10 15:08 | PDOC.HOSPP ---
- Subjective Encounter Date: 05/10/20 Encounter Time: 10:30 Subjective: pt up in bed no complains - Objective Vital Signs & Weight: Vital Signs (12 hours) Temp Pulse Pulse Pulse Resp BP BP 05/10/20 13:04 90 92 136/72 136/74 05/10/20 12:00 97.6 F 80 18 05/10/20 10:35 94 92 145/76 H 147/73 H 05/10/20 07:47 98.4 F 92 20 05/10/20 04:00 98.6 F 86 20 BP Pulse Ox Pulse Ox Pulse Ox 05/10/20 13:04 97 05/10/20 12:00 139/73 94 L 05/10/20 10:35 97 93 L 05/10/20 07:47 143/70 H 95 05/10/20 04:00 132/72 94 L Weight Weight 139 lb I&O: 05/09/20 05/10/20 05/11/20 06:59 06:59 06:59 Intake Total 1077 840 240 Output Total 1400 Balance 1077 -560 240 Result Diagrams: 05/09/20 08:38 05/09/20 08:38 Additional Labs: Accuchecks 05/10/20 05/10/20 05/09/20 10:46 05:59 20:18 POC Glucose 151 H 66 L 137 H 05/09/20 16:37 POC Glucose 115 H Hospitalist ROS - Review of Systems Cardiovascular: denies: chest pain, palpitations, orthopnea, paroxysmal noc. dyspnea, edema, light headedness, other Gastrointestinal: denies: nausea, vomiting, abdominal pain, diarrhea, constipation, melena, hematochezia, other Genitourinary: denies: dysuria, frequency, incontinence, hematuria, retention, other - Medication Medications: Active Medications Generic Name Dose Route Start Last Admin Trade Name Freq PRN Reason Stop Dose Admin Atorvastatin Calcium 40 mg 05/06/20 09:00 05/10/20 10:21 Atorvastatin Calcium 40 Mg Tab PO 40 mg DAILY [facility] Administration Bupropion HCl 150 mg 05/06/20 09:00 05/10/20 10:21 Bupropion 75 Mg Tab PO 150 mg DAILY [facility]STIAN Administration Carvedilol 12.5 mg 05/05/20 21:00 05/10/20 10:20 Carvedilol 6.25 Mg Tab PO 12.5 mg BID [facility]STIAN Administration Cholecalciferol 2,000 units 05/06/20 09:00 05/10/20 10:21 Cholecalciferol 1,000 Units (25 Mcg) Tab PO 2,000 units DAILY [facility]STIAN Administration Epoetin Jones-epbx 10,000 unit 05/09/20 21:00 05/09/20 20:58 Epoetin Jones-Epbx (Esrd) 10,000 Unit/Ml Vial SC 10,000 unit Q7D [facility]IAN Administration Heparin Sodium (Porcine) 5,000 units 05/09/20 21:00 05/10/20 10:22 Heparin 5,000 Units/Ml Vial SC 5,000 units BID [facility] Administration Insulin Human Lispro 0 units 05/03/20 23:27 05/06/20 06:07 Humalog 300 Units/3 Ml Vial SC 2 unit .MILD SLIDING SCALE PRN Administration Mild Correctional Scale Insulin Human Lispro 0 units 05/03/20 23:27 05/05/20 21:38 Humalog 300 Units/3 Ml Vial SC 4 unit .BEDTIME SLIDING SC PRN Administration Bedtime Correctional Scale Labetalol HCl 20 mg 05/04/20 04:07 05/07/20 04:04 Labetalol Hcl 100 Mg/20 Ml Vial SLOW IVP 20 mg Q4H PRN Administration SBP > 180 and HR >/= 70 Losartan Potassium 100 mg 05/06/20 09:00 05/10/20 10:20 Losartan 25 Mg Tab PO 100 mg DAILY [facility]RISTIAN Administration Memantine 10 mg 05/05/20 21:00 05/10/20 10:20 Memantine Hcl 10 Mg Tab PO 10 mg BID [facility]STIAN Administration Nifedipine 60 mg 05/08/20 05:27 05/10/20 10:19 Nifedipine Xl 30 Mg Tab PO 60 mg DAILY [facility] Administration Pantoprazole Sodium 40 mg 05/06/20 09:00 05/10/20 10:21 Pantoprazole 40 Mg Tab PO 40 mg DAILY [facility]RISTIAN Administration Polyethylene Glycol 17 gm 05/06/20 09:00 05/10/20 10:21 Polyethylene Glycol 3350 17 Gm Packet PO 17 gm DAILY [facility]IAN Administration Tamsulosin HCl 0.4 mg 05/06/20 09:00 05/10/20 10:20 Tamsulosin Hcl 0.4 Mg Cap PO 0.4 mg DAILY [facility] Administration Tizanidine HCl 4 mg 05/05/20 12:00 05/10/20 11:56 Tizanidine Hcl 4 Mg Tab PO 4 mg 0400,1200,2000 [facility] Administration Trazodone HCl 200 mg 05/05/20 21:00 05/09/20 20:59 Trazodone Hcl 50 Mg Tab PO 200 mg HS [facility]RISTIAN Administration - Exam Heart: negative: RRR, no murmur, no gallops, no rubs, normal peripheral pulses, irregular, diminshed peripheral pulses, murmur present, II/IV, III/IV Respiratory: negative: CTAB, no wheezes, no rales, no ronchi, normal chest expansion, no tachypnea, normal percussion, rales, rhonchi, tachypneic, wheezes Gastrointestinal: negative: soft, non-tender, non-distended, normal bowel sounds, no palpable masses, no hepatomegaly, no splenomegaly, no bruit, no guarding, no rigidity, tender to palpation, distended, diminished bowl sounds, voluntary guarding Hosp A/P - Plan Generalized weakness Possible new onset murmurecho in a.m. Continue to follow labs Patient is poor historian but reports missed dialysis treatment yesterday Heart murmur- possibly new Echo in a.m. Concerns for endocarditis in ERcurrently afebrile, no leukocytosiscontinue to monitor patient vitals along with lab work, continue IV antibiotics and consider cardiology consultation if deemed necessary after echo tomorrow Anemia Possibly from chronic disease Continue to monitor, no signs of bleeding Hypertension Restart patient home medications once reconciled End-stage renal disease on dialysis Consult nephrology in a.m. Patient may possibly need dialysis tomorrow as he missed yesterday Diabetes mellitus type 2 Monitor Accu-Cheks AC at bedtime Mild sliding scale insulin VTE prophylaxis in place with heparin CODE STATUS: Full Surrogate decision-maker is his nephew 05/05 patient's echo did not indicate any acute abnormalities. He is got no fever. No elevated WBCs. I do not believe this is endocarditis. We will stop vancomycin and ceftriaxone. PT OT to eval. There was some concerns for safety since APS was notified while patient was in the ER. We will get case management for possible short-term placement. / patient to be evaluated by PT/ OT. Will probably need some short-term placement. No fevers. Patient's antibiotics has been discontinued. 05/08 patient up in bed no issues. Waiting on placement for alf facility 05/09 pt up in bed no complains. needs placement. 05/10 pt needs placement. per pillowcase maker pt's family is difficult to be contacted by the half-way agency.
[2020-05-10] MEDS: traZODone HCl 50 MG TAB PO SCH (23:11)
[2020-05-11] MEDS: tiZANidine HCl 4 MG TAB PO SCH ×3 (06:29→21:35)
[2020-05-11 09:03] LABS: Anion Gap 15 mmol/L (10-20); BUN (Urea Nitrogen) 33 mg/dL (8.4-25.7); Calc. Creatinine Clearance 10 mL/min (70-130); Calcium 8.3 mg/dL (7.8-10.44); Carbon Dioxide 26 mmol/L (23-31); Chloride 96 mmol/L (98-107); Glucose 66 mg/dL (83-110); Potassium 5.3 mmol/L (3.5-5.1); Sodium 132 mmol/L (136-145)
[2020-05-11 10:40] LABS: Hemoglobin 8.8 g/dL (14.0-18.0); Mean Corpuscular Hemoglobin 31.9 pg (27.0-31.0); Mean Corpuscular Volume 99.6 fL (78.0-98.0); Platelet Count 145 thou/uL (130-400); RBC Distribution Width 14.6 % (11.5-14.5); Red Blood Cell (RBC) Count 2.74 mill/uL (4.70-6.10); White Blood Cell (WBC) Count 4.2 thou/uL (4.8-10.8)
[2020-05-11 11:56] LABS: Band 1 % (5-11); Eosinophils 7 % (0-10); Lymphocytes 15 % (21-51); MDiff Complete? YES; Monocytes 10 % (0-10); Neutrophil 65 % (42-75); Platelet Morphology Comment Appears Adequate; Polychromasia SLIGHT = 2-3 cells (100X) (0-2/hpf); Reactive Lymphocytes 1 % (0-10)
[2020-05-11] MEDS ORDERED: Heparin 10,000 UNITS/ 10 ML VIAL ONE (12:33)
[2020-05-11] MEDS: buPROPion 75 MG TAB PO SCH (14:16)
[2020-05-11] MEDS: Atorvastatin Calcium 40 MG TAB PO SCH (14:16)
[2020-05-11] MEDS: Carvedilol 6.25 MG TAB PO SCH ×2 (14:16→21:36)
[2020-05-11] MEDS: NIFEdipine XL 30 MG TAB PO SCH (14:17)
[2020-05-11] MEDS: Losartan 25 MG TAB PO SCH (14:17)
[2020-05-11] MEDS: Cholecalciferol 1,000 UNITS (25 MCG) TAB PO SCH (14:17)
[2020-05-11] MEDS: Heparin 5,000 UNITS/ML VIAL SC SCH ×2 (14:17→21:35)
[2020-05-11] MEDS: Tamsulosin HCl 0.4 MG CAP PO SCH (14:18)
[2020-05-11] MEDS: Polyethylene Glycol 3350 17 GM Packet PO SCH (14:27)
--- NOTE | 2020-05-11 16:00 | PDOC.HOSPP ---
- Subjective Encounter Date: 05/11/20 Encounter Time: 10:30 Subjective: pt up in bed no complains. - Objective Vital Signs & Weight: Vital Signs (12 hours) Temp Pulse Resp BP Pulse Ox 05/11/20 15:17 97.7 F 83 18 133/71 97 05/11/20 14:23 98.0 F 82 16 157/74 H 98 05/11/20 09:38 146/64 H 05/11/20 07:39 98.2 F 90 16 124/73 95 05/11/20 04:00 97.9 F 83 15 120/77 94 L Weight Weight 139 lb I&O: 05/10/20 05/11/20 05/12/20 06:59 06:59 06:59 Intake Total 840 680 Output Total 1400 Balance -560 680 Result Diagrams: 05/11/20 09:45 05/11/20 08:12 Additional Labs: Accuchecks 05/11/20 05/11/20 05/10/20 14:41 05:36 20:46 POC Glucose 79 63 L 109 H 05/10/20 16:52 POC Glucose 80 Hospitalist ROS - Review of Systems Respiratory: denies: cough, dry, shortness of breath, hemoptysis, SOB with excertion, pleuritic pain, sputum, wheezing, other Cardiovascular: denies: chest pain, palpitations, orthopnea, paroxysmal noc. dyspnea, edema, light headedness, other Gastrointestinal: denies: nausea, vomiting, abdominal pain, diarrhea, constipation, melena, hematochezia, other - Medication Medications: Active Medications Generic Name Dose Route Start Last Admin Trade Name Gloria PRN Reason Stop Dose Admin Atorvastatin Calcium 40 mg 05/06/20 09:00 05/11/20 14:16 Atorvastatin Calcium 40 Mg Tab PO 40 mg DAILY [facility]STIAN Administration Bupropion HCl 150 mg 05/06/20 09:00 05/11/20 14:16 Bupropion 75 Mg Tab PO 150 mg DAILY [facility]STIAN Administration Carvedilol 12.5 mg 05/05/20 21:00 05/11/20 14:16 Carvedilol 6.25 Mg Tab PO 12.5 mg BID [facility]STIAN Administration Cholecalciferol 2,000 units 05/06/20 09:00 05/11/20 14:17 Cholecalciferol 1,000 Units (25 Mcg) Tab PO 2,000 units DAILY [facility]STIAN Administration Epoetin Jones-epbx 10,000 unit 05/09/20 21:00 05/09/20 20:58 Epoetin Jones-Epbx (Esrd) 10,000 Unit/Ml Vial SC 10,000 unit Q7D [facility] Administration Heparin Sodium (Porcine) 5,000 units 05/09/20 21:00 05/11/20 14:17 Heparin 5,000 Units/Ml Vial SC 5,000 units BID [facility]STIAN Administration Insulin Human Lispro 0 units 05/03/20 23:27 05/06/20 06:07 Humalog 300 Units/3 Ml Vial SC 2 unit .MILD SLIDING SCALE PRN Administration Mild Correctional Scale Insulin Human Lispro 0 units 05/03/20 23:27 05/05/20 21:38 Humalog 300 Units/3 Ml Vial SC 4 unit .BEDTIME SLIDING SC PRN Administration Bedtime Correctional Scale Labetalol HCl 20 mg 05/04/20 04:07 05/07/20 04:04 Labetalol Hcl 100 Mg/20 Ml Vial SLOW IVP 20 mg Q4H PRN Administration SBP > 180 and HR >/= 70 Losartan Potassium 100 mg 05/06/20 09:00 05/11/20 14:17 Losartan 25 Mg Tab PO 100 mg DAILY [facility]STIAN Administration Memantine 10 mg 05/05/20 21:00 05/11/20 14:17 Memantine Hcl 10 Mg Tab PO 10 mg BID [facility]STIAN Administration Nifedipine 60 mg 05/08/20 05:27 05/11/20 14:17 Nifedipine Xl 30 Mg Tab PO 60 mg DAILY [facility] Administration Pantoprazole Sodium 40 mg 05/06/20 09:00 05/11/20 14:18 Pantoprazole 40 Mg Tab PO 40 mg DAILY [facility] Administration Polyethylene Glycol 17 gm 05/06/20 09:00 05/11/20 14:27 Polyethylene Glycol 3350 17 Gm Packet PO Not Given DAILY [facility]IAN Tamsulosin HCl 0.4 mg 05/06/20 09:00 05/11/20 14:18 Tamsulosin Hcl 0.4 Mg Cap PO 0.4 mg DAILY [facility] Administration Tizanidine HCl 4 mg 05/05/20 12:00 05/11/20 14:18 Tizanidine Hcl 4 Mg Tab PO 4 mg 0400,1200,2000 [facility] Administration Trazodone HCl 200 mg 05/05/20 21:00 05/10/20 23:11 Trazodone Hcl 50 Mg Tab PO 200 mg HS [facility]STIAN Administration - Exam Neck: negative: supple, symmetric, no JVD, no thyromegaly, no lymphadenopathy, no carotid bruit, JVD Heart: negative: RRR, no murmur, no gallops, no rubs, normal peripheral pulses, irregular, diminshed peripheral pulses, murmur present, II/IV, III/IV Respiratory: negative: CTAB, no wheezes, no rales, no ronchi, normal chest expansion, no tachypnea, normal percussion, rales, rhonchi, tachypneic, wheezes Hosp A/P - Plan Generalized weakness Possible new onset murmurecho in a.m. Continue to follow labs Patient is poor historian but reports missed dialysis treatment yesterday Heart murmur- possibly new Echo in a.m. Concerns for endocarditis in ERcurrently afebrile, no leukocytosiscontinue to monitor patient vitals along with lab work, continue IV antibiotics and consider cardiology consultation if deemed necessary after echo tomorrow Anemia Possibly from chronic disease Continue to monitor, no signs of bleeding Hypertension Restart patient home medications once reconciled End-stage renal disease on dialysis Consult nephrology in a.m. Patient may possibly need dialysis tomorrow as he missed yesterday Diabetes mellitus type 2 Monitor Accu-Cheks AC at bedtime Mild sliding scale insulin VTE prophylaxis in place with heparin CODE STATUS: Full Surrogate decision-maker is his nephew 05/05 patient's echo did not indicate any acute abnormalities. He is got no fever. No elevated WBCs. I do not believe this is endocarditis. We will stop vancomycin and ceftriaxone. PT OT to eval. There was some concerns for safety since APS was notified while patient was in the ER. We will get case management for possible short-term placement. 05/06 patient to be evaluated by PT/ OT. Will probably need some short-term placement. No fevers. Patient's antibiotics has been discontinued. 05/08 patient up in bed no issues. Waiting on placement for residential facility 05/09 pt up in bed no complains. needs placement. 05/10 pt needs placement. per case operator pt's family is difficult to be contacted by the shelter agency. 05/11 pt medically stable and ok for discharge. pt's family not cooperative in doing paperwork. Hard to discharge pt. will get inpatient rehab.
[2020-05-11] MEDS: traZODone HCl 50 MG TAB PO SCH (21:36)
[2020-05-12] MEDS: tiZANidine HCl 4 MG TAB PO SCH ×3 (05:13→20:24)
[2020-05-12] MEDS: Carvedilol 6.25 MG TAB PO SCH ×2 (09:09→20:23)
[2020-05-12] MEDS: NIFEdipine XL 30 MG TAB PO SCH (09:09)
[2020-05-12] MEDS: buPROPion 75 MG TAB PO SCH (09:10)
[2020-05-12] MEDS: Cholecalciferol 1,000 UNITS (25 MCG) TAB PO SCH (09:10)
[2020-05-12] MEDS: Atorvastatin Calcium 40 MG TAB PO SCH (09:10)
[2020-05-12] MEDS: Heparin 5,000 UNITS/ML VIAL SC SCH ×2 (09:10→20:23)
[2020-05-12] MEDS: Tamsulosin HCl 0.4 MG CAP PO SCH (09:10)
[2020-05-12] MEDS: Polyethylene Glycol 3350 17 GM Packet PO SCH (09:11)
[2020-05-12] MEDS: Losartan 25 MG TAB PO SCH (09:19)
--- NOTE | 2020-05-12 16:23 | PDOC.HOSPP ---
- Subjective Encounter Date: 05/12/20 Encounter Time: 12:00 Subjective: Patient up in bed no complaint - Objective Vital Signs & Weight: Vital Signs (12 hours) Temp Pulse Resp BP BP Pulse Ox 05/12/20 11:03 98.2 F 84 18 144/74 H 92 L 05/12/20 09:09 84 137/73 05/12/20 08:15 98.6 F 78 17 137/67 97 Weight Weight 139 lb 15.896 oz I&O: 05/11/20 05/12/20 05/13/20 06:59 06:59 06:59 Intake Total 680 600 Output Total 0 Balance 680 600 Result Diagrams: 05/11/20 09:45 05/11/20 08:12 Additional Labs: Accuchecks 05/12/20 05/11/20 05/11/20 05:33 20:34 16:57 POC Glucose 72 129 H 130 H Hospitalist ROS - Review of Systems Cardiovascular: denies: chest pain, palpitations, orthopnea, paroxysmal noc. dyspnea, edema, light headedness, other Gastrointestinal: denies: nausea, vomiting, abdominal pain, diarrhea, constipation, melena, hematochezia, other Genitourinary: denies: dysuria, frequency, incontinence, hematuria, retention, other - Medication Medications: Active Medications Generic Name Dose Route Start Last Admin Trade Name Isaacq PRN Reason Stop Dose Admin Atorvastatin Calcium 40 mg 05/06/20 09:00 05/12/20 09:10 Atorvastatin Calcium 40 Mg Tab PO 40 mg DAILY CHRISTIAN Administration Bupropion HCl 150 mg 05/06/20 09:00 05/12/20 09:10 Bupropion 75 Mg Tab PO 150 mg DAILY CHRISTIAN Administration Carvedilol 12.5 mg 05/05/20 21:00 05/12/20 09:09 Carvedilol 6.25 Mg Tab PO 12.5 mg BID CHRISTIAN Administration Cholecalciferol 2,000 units 05/06/20 09:00 05/12/20 09:10 Cholecalciferol 1,000 Units (25 Mcg) Tab PO 2,000 units DAILY CHRISTIAN Administration Epoetin Jones-epbx 10,000 unit 05/09/20 21:00 05/09/20 20:58 Epoetin Jones-Epbx (Esrd) 10,000 Unit/Ml Vial SC 10,000 unit Q7D CHRISTIAN Administration Heparin Sodium (Porcine) 5,000 units 05/09/20 21:00 05/12/20 09:10 Heparin 5,000 Units/Ml Vial SC 5,000 units BID CHRISTIAN Administration Insulin Human Lispro 0 units 05/03/20 23:27 05/06/20 06:07 Humalog 300 Units/3 Ml Vial SC 2 unit .MILD SLIDING SCALE PRN Administration Mild Correctional Scale Insulin Human Lispro 0 units 05/03/20 23:27 05/05/20 21:38 Humalog 300 Units/3 Ml Vial SC 4 unit .BEDTIME SLIDING SC PRN Administration Bedtime Correctional Scale Labetalol HCl 20 mg 05/04/20 04:07 05/07/20 04:04 Labetalol Hcl 100 Mg/20 Ml Vial SLOW IVP 20 mg Q4H PRN Administration SBP > 180 and HR >/= 70 Losartan Potassium 100 mg 05/06/20 09:00 05/12/20 09:19 Losartan 25 Mg Tab PO 100 mg DAILY CHRISTIAN Administration Memantine 10 mg 05/05/20 21:00 05/12/20 09:10 Memantine Hcl 10 Mg Tab PO 10 mg BID CHRISTIAN Administration Nifedipine 60 mg 05/08/20 05:27 05/12/20 09:09 Nifedipine Xl 30 Mg Tab PO 60 mg DAILY CHRISTIAN Administration Pantoprazole Sodium 40 mg 05/06/20 09:00 05/12/20 09:10 Pantoprazole 40 Mg Tab PO 40 mg DAILY CHRISTIAN Administration Polyethylene Glycol 17 gm 05/06/20 09:00 05/12/20 09:11 Polyethylene Glycol 3350 17 Gm Packet PO Not Given DAILY CHRISTIAN Tamsulosin HCl 0.4 mg 05/06/20 09:00 05/12/20 09:10 Tamsulosin Hcl 0.4 Mg Cap PO 0.4 mg DAILY CHRISTIAN Administration Tizanidine HCl 4 mg 05/05/20 12:00 05/12/20 11:07 Tizanidine Hcl 4 Mg Tab PO 4 mg 0400,1200,2000 CHRISTIAN Administration Trazodone HCl 200 mg 05/05/20 21:00 05/11/20 21:36 Trazodone Hcl 50 Mg Tab PO 200 mg HS CHRISTIAN Administration - Exam Neck: negative: supple, symmetric, no JVD, no thyromegaly, no lymphadenopathy, no carotid bruit, JVD Heart: negative: RRR, no murmur, no gallops, no rubs, normal peripheral pulses, irregular, diminshed peripheral pulses, murmur present, II/IV, III/IV Respiratory: negative: CTAB, no wheezes, no rales, no ronchi, normal chest expansion, no tachypnea, normal percussion, rales, rhonchi, tachypneic, wheezes Hosp A/P - Plan Generalized weakness Possible new onset murmurecho in a.m. Continue to follow labs Patient is poor historian but reports missed dialysis treatment yesterday Heart murmur- possibly new Echo in a.m. Concerns for endocarditis in ERcurrently afebrile, no leukocytosiscontinue to monitor patient vitals along with lab work, continue IV antibiotics and consider cardiology consultation if deemed necessary after echo tomorrow Anemia Possibly from chronic disease Continue to monitor, no signs of bleeding Hypertension Restart patient home medications once reconciled End-stage renal disease on dialysis Consult nephrology in a.m. Patient may possibly need dialysis tomorrow as he missed yesterday Diabetes mellitus type 2 Monitor Accu-Cheks AC at bedtime Mild sliding scale insulin VTE prophylaxis in place with heparin CODE STATUS: Full Surrogate decision-maker is his nephew 05/05 patient's echo did not indicate any acute abnormalities. He is got no fever. No elevated WBCs. I do not believe this is endocarditis. We will stop vancomycin and ceftriaxone. PT OT to eval. There was some concerns for safety since APS was notified while patient was in the ER. We will get case management for possible short-term placement. 05/06 patient to be evaluated by PT/ OT. Will probably need some short-term placement. No fevers. Patient's antibiotics has been discontinued. 05/08 patient up in bed no issues. Waiting on placement for group home facility 05/09 pt up in bed no complains. needs placement. 05/10 pt needs placement. per continuous pillowcase cutter pt's family is difficult to be contacted by the prison agency. 05/11 pt medically stable and ok for discharge. pt's family not cooperative in doing paperwork. Hard to discharge pt. will get inpatient rehab. 05/12 patient medically stable okay for discharge. Waiting for bed placement.
--- NOTE | 2020-05-12 19:32 | PRG ---
DATE OF SERVICE: 05/11/2020 OBJECTIVE: VITAL SIGNS: The patient noted with the following vital signs; afebrile, temperature 97.7, pulse 83, respiratory rate of 18, O2 saturation of 97%, with a blood pressure of 133/71. HEENT: Unremarkable. CARDIOVASCULAR SYSTEM: First and second heart sounds were heard. RESPIRATORY SYSTEM: Clear to auscultation. DIGESTIVE SYSTEM: Revealed a benign abdomen with positive bowel sounds. EXTREMITIES: No peripheral edema. SKIN: No new gross rash. LYMPHATICS: No peripheral lymphadenopathy. IMPRESSION: 1. End-stage renal disease, on dialysis Thursday, Thursday, Thursday, being dialyzed today. 2. Anemia of chronic kidney disease. 3. Hypertension. PLAN: 1. The patient to continue on the current schedule of Thursday, Thursday, Thursday, and is doing well. 2. Awaiting placement of patient for discharge. 3. Further management to be dependent on the clinical course. Job ID: [id number]
--- NOTE | 2020-05-12 20:14 | PRG ---
DATE OF SERVICE: 05/12/2020 OBJECTIVE: VITAL SIGNS: The patient noted with following vital signs; afebrile, hemodynamically stable. HEENT: Unremarkable. CARDIOVASCULAR SYSTEM: First and second heart sounds are heard. RESPIRATORY SYSTEM: Clear to auscultation. DIGESTIVE SYSTEM: Reveals a benign abdomen with positive bowel sounds. EXTREMITIES: No peripheral edema. SKIN: No new gross rash. LYMPHATICS: No peripheral lymphadenopathy. IMPRESSION: 1. End-stage renal disease, on dialysis, dialysis today. 2. Anemia of chronic kidney disease. PLAN: 1. The patient is awaiting placement, outpatient dialysis . 2. From the renal standpoint, the patient is good for discharge. Job ID: [id number]
[2020-05-12] MEDS: traZODone HCl 50 MG TAB PO SCH (20:24)
[2020-05-13] MEDS: tiZANidine HCl 4 MG TAB PO SCH ×3 (03:26→20:15)
[2020-05-13] MEDS: Melatonin 3 MG TAB PO PRN ×2 (03:27→22:23)
[2020-05-13] MEDS: Atorvastatin Calcium 40 MG TAB PO SCH (09:08)
[2020-05-13] MEDS: Losartan 25 MG TAB PO SCH (09:08)
[2020-05-13] MEDS: Tamsulosin HCl 0.4 MG CAP PO SCH (09:08)
[2020-05-13] MEDS: Carvedilol 6.25 MG TAB PO SCH ×2 (09:08→20:15)
[2020-05-13] MEDS: Cholecalciferol 1,000 UNITS (25 MCG) TAB PO SCH (09:09)
[2020-05-13] MEDS: Heparin 5,000 UNITS/ML VIAL SC SCH ×2 (09:09→20:15)
[2020-05-13] MEDS: buPROPion 75 MG TAB PO SCH (09:09)
[2020-05-13] MEDS: Polyethylene Glycol 3350 17 GM Packet PO SCH (09:10)
[2020-05-13] MEDS: NIFEdipine XL 30 MG TAB PO SCH (09:10)
--- NOTE | 2020-05-13 15:18 | PDOC.HOSPP ---
- Subjective Encounter Date: 05/13/20 Encounter Time: 10:30 Subjective: Patient up in bed no complaints - Objective Vital Signs & Weight: Vital Signs (12 hours) Temp Pulse Resp BP Pulse Ox 05/13/20 12:25 98.2 F 85 19 143/79 H 95 05/13/20 09:10 79 05/13/20 08:00 98.9 F 79 19 116/79 98 05/13/20 03:28 98.6 F 81 16 126/70 97 Weight Weight 142 lb 6.698 oz I&O: 05/12/20 05/13/20 05/14/20 06:59 06:59 06:59 Intake Total 600 770 Output Total 0 Balance 600 770 Result Diagrams: 05/11/20 09:45 05/11/20 08:12 Additional Labs: Accuchecks 05/13/20 05/13/20 05/12/20 11:32 05:35 20:15 POC Glucose 72 84 180 H 05/12/20 16:50 POC Glucose 96 Hospitalist ROS - Review of Systems Respiratory: denies: cough, dry, shortness of breath, hemoptysis, SOB with excertion, pleuritic pain, sputum, wheezing, other Cardiovascular: denies: chest pain, palpitations, orthopnea, paroxysmal noc. dyspnea, edema, light headedness, other Gastrointestinal: denies: nausea, vomiting, abdominal pain, diarrhea, constipation, melena, hematochezia, other - Medication Medications: Active Medications Generic Name Dose Route Start Last Admin Trade Name Freq PRN Reason Stop Dose Admin Atorvastatin Calcium 40 mg 05/06/20 09:00 05/13/20 09:08 Atorvastatin Calcium 40 Mg Tab PO 40 mg DAILY CHRISTIAN Administration Bupropion HCl 150 mg 05/06/20 09:00 05/13/20 09:09 Bupropion 75 Mg Tab PO 150 mg DAILY CHRISTIAN Administration Carvedilol 12.5 mg 05/05/20 21:00 05/13/20 09:08 Carvedilol 6.25 Mg Tab PO 12.5 mg BID CHRISTIAN Administration Cholecalciferol 2,000 units 05/06/20 09:00 05/13/20 09:09 Cholecalciferol 1,000 Units (25 Mcg) Tab PO 2,000 units DAILY CHRISTIAN Administration Epoetin Jones-epbx 10,000 unit 05/09/20 21:00 05/09/20 20:58 Epoetin Jones-Epbx (Esrd) 10,000 Unit/Ml Vial SC 10,000 unit Q7D CHRISTIAN Administration Heparin Sodium (Porcine) 5,000 units 05/09/20 21:00 05/13/20 09:09 Heparin 5,000 Units/Ml Vial SC 5,000 units BID CHRISTIAN Administration Insulin Human Lispro 0 units 05/03/20 23:27 05/06/20 06:07 Humalog 300 Units/3 Ml Vial SC 2 unit .MILD SLIDING SCALE PRN Administration Mild Correctional Scale Insulin Human Lispro 0 units 05/03/20 23:27 05/05/20 21:38 Humalog 300 Units/3 Ml Vial SC 4 unit .BEDTIME SLIDING SC PRN Administration Bedtime Correctional Scale Labetalol HCl 20 mg 05/04/20 04:07 05/07/20 04:04 Labetalol Hcl 100 Mg/20 Ml Vial SLOW IVP 20 mg Q4H PRN Administration SBP > 180 and HR >/= 70 Losartan Potassium 100 mg 05/06/20 09:00 05/13/20 09:08 Losartan 25 Mg Tab PO 100 mg DAILY CHRISTIAN Administration Melatonin 3 mg 05/13/20 03:04 05/13/20 03:27 Melatonin 3 Mg Tab PO 3 mg HS PRN Administration Insomnia Memantine 10 mg 05/05/20 21:00 05/13/20 09:10 Memantine Hcl 10 Mg Tab PO 10 mg BID CHRISTIAN Administration Nifedipine 60 mg 05/08/20 05:27 05/13/20 09:10 Nifedipine Xl 30 Mg Tab PO 60 mg DAILY CHRISTIAN Administration Pantoprazole Sodium 40 mg 05/06/20 09:00 05/13/20 09:09 Pantoprazole 40 Mg Tab PO 40 mg DAILY CHRISTIAN Administration Polyethylene Glycol 17 gm 05/06/20 09:00 05/13/20 09:10 Polyethylene Glycol 3350 17 Gm Packet PO Not Given DAILY CHRISTIAN Tamsulosin HCl 0.4 mg 05/06/20 09:00 05/13/20 09:08 Tamsulosin Hcl 0.4 Mg Cap PO 0.4 mg DAILY CHRISTIAN Administration Tizanidine HCl 4 mg 05/05/20 12:00 05/13/20 12:26 Tizanidine Hcl 4 Mg Tab PO 4 mg 0400,1200,2000 CHRISTIAN Administration Trazodone HCl 200 mg 05/05/20 21:00 05/12/20 20:24 Trazodone Hcl 50 Mg Tab PO 200 mg HS CHRISTIAN Administration - Exam Neck: negative: supple, symmetric, no JVD, no thyromegaly, no lymphadenopathy, no carotid bruit, JVD Heart: RRR, no murmur, no gallops, no rubs, normal peripheral pulses, irregular, diminshed peripheral pulses, murmur present, II/IV, III/IV Respiratory: negative: CTAB, no wheezes, no rales, no ronchi, normal chest expansion, no tachypnea, normal percussion, rales, rhonchi, tachypneic, wheezes Hosp A/P - Plan Generalized weakness Possible new onset murmurecho in a.m. Continue to follow labs Patient is poor historian but reports missed dialysis treatment yesterday Heart murmur- possibly new Echo in a.m. Concerns for endocarditis in ERcurrently afebrile, no leukocytosiscontinue to monitor patient vitals along with lab work, continue IV antibiotics and consider cardiology consultation if deemed necessary after echo tomorrow Anemia Possibly from chronic disease Continue to monitor, no signs of bleeding Hypertension Restart patient home medications once reconciled End-stage renal disease on dialysis Consult nephrology in a.m. Patient may possibly need dialysis tomorrow as he missed yesterday Diabetes mellitus type 2 Monitor Accu-Cheks AC at bedtime Mild sliding scale insulin VTE prophylaxis in place with heparin CODE STATUS: Full Surrogate decision-maker is his nephew 05/05 patient's echo did not indicate any acute abnormalities. He is got no fever. No elevated WBCs. I do not believe this is endocarditis. We will stop vancomycin and ceftriaxone. PT OT to eval. There was some concerns for safety since APS was notified while patient was in the ER. We will get case management for possible short-term placement. 05/06 patient to be evaluated by PT/ OT. Will probably need some short-term placement. No fevers. Patient's antibiotics has been discontinued. 05/08 patient up in bed no issues. Waiting on placement for custodial facility 05/09 pt up in bed no complains. needs placement. 05/10 pt needs placement. per family service caseworker pt's family is difficult to be contacted by the [facility] agency. 05/11 pt medically stable and ok for discharge. pt's family not cooperative in doing paperwork. Hard to discharge pt. will get inpatient rehab. 05/12 patient medically stable okay for discharge. Waiting for bed placement. 05/13 patient medically stable again looking for placement for this patient.
[2020-05-13] MEDS: traZODone HCl 50 MG TAB PO SCH (20:15)
[2020-05-14] MEDS: tiZANidine HCl 4 MG TAB PO SCH ×3 (05:07→21:05)
[2020-05-14] MEDS: Tamsulosin HCl 0.4 MG CAP PO SCH (08:35)
[2020-05-14] MEDS: Cholecalciferol 1,000 UNITS (25 MCG) TAB PO SCH (08:35)
[2020-05-14] MEDS: Atorvastatin Calcium 40 MG TAB PO SCH (08:35)
[2020-05-14] MEDS: Carvedilol 6.25 MG TAB PO SCH ×2 (08:35→21:04)
[2020-05-14] MEDS: Polyethylene Glycol 3350 17 GM Packet PO SCH (08:36)
[2020-05-14] MEDS: buPROPion 75 MG TAB PO SCH (08:36)
[2020-05-14] MEDS: Heparin 5,000 UNITS/ML VIAL SC SCH ×2 (08:36→21:01)
[2020-05-14] MEDS ORDERED: Heparin 10,000 UNITS/ 10 ML VIAL ONE (12:59)
[2020-05-14] MEDS: NIFEdipine XL 30 MG TAB PO SCH (13:46)
[2020-05-14] MEDS: Losartan 25 MG TAB PO SCH (13:46)
--- NOTE | 2020-05-14 16:06 | PDOC.HOSPP ---
- Subjective Encounter Date: 05/14/20 Encounter Time: 12:00 Subjective: Patient up in bed no complaints - Objective Vital Signs & Weight: Vital Signs (12 hours) Temp Pulse Resp BP BP Pulse Ox 05/14/20 15:45 97.7 F 80 18 179/84 H 96 05/14/20 13:46 79 179/86 H 05/14/20 13:45 98.2 F 79 16 179/86 H 98 05/14/20 08:35 154/78 H 05/14/20 08:33 98.3 F 86 16 154/78 H 93 L Weight Weight 146 lb 12.8 oz I&O: 05/13/20 05/14/20 05/15/20 06:59 06:59 06:59 Intake Total 770 1150 Output Total 1 2400 Balance 770 1149 -2400 Result Diagrams: 05/11/20 09:45 05/11/20 08:12 Additional Labs: Accuchecks 05/14/20 05/14/20 05/13/20 10:27 05:34 20:24 POC Glucose 89 81 127 H 05/13/20 05/12/20 16:35 12:03 POC Glucose 116 H 122 H Hospitalist ROS - Review of Systems Cardiovascular: denies: chest pain, palpitations, orthopnea, paroxysmal noc. dyspnea, edema, light headedness, other Gastrointestinal: denies: nausea, vomiting, abdominal pain, diarrhea, constipation, melena, hematochezia, other Genitourinary: denies: dysuria, frequency, incontinence, hematuria, retention, other - Medication Medications: Active Medications Generic Name Dose Route Start Last Admin Trade Name Gloria PRN Reason Stop Dose Admin Atorvastatin Calcium 40 mg 05/06/20 09:00 05/14/20 08:35 Atorvastatin Calcium 40 Mg Tab PO 40 mg DAILY CHRISTIAN Administration Bupropion HCl 150 mg 05/06/20 09:00 05/14/20 08:36 Bupropion 75 Mg Tab PO 150 mg DAILY CHRISTIAN Administration Carvedilol 12.5 mg 05/05/20 21:00 05/14/20 08:35 Carvedilol 6.25 Mg Tab PO 12.5 mg BID CHRISTIAN Administration Cholecalciferol 2,000 units 05/06/20 09:00 05/14/20 08:35 Cholecalciferol 1,000 Units (25 Mcg) Tab PO 2,000 units DAILY CHRISTIAN Administration Epoetin Jones-epbx 10,000 unit 05/09/20 21:00 05/09/20 20:58 Epoetin Jones-Epbx (Esrd) 10,000 Unit/Ml Vial SC 10,000 unit Q7D CHRISTIAN Administration Heparin Sodium (Porcine) 5,000 units 05/09/20 21:00 05/14/20 08:36 Heparin 5,000 Units/Ml Vial SC 5,000 units BID CHRISTIAN Administration Insulin Human Lispro 0 units 05/03/20 23:27 05/06/20 06:07 Humalog 300 Units/3 Ml Vial SC 2 unit .MILD SLIDING SCALE PRN Administration Mild Correctional Scale Insulin Human Lispro 0 units 05/03/20 23:27 05/05/20 21:38 Humalog 300 Units/3 Ml Vial SC 4 unit .BEDTIME SLIDING SC PRN Administration Bedtime Correctional Scale Labetalol HCl 20 mg 05/04/20 04:07 05/07/20 04:04 Labetalol Hcl 100 Mg/20 Ml Vial SLOW IVP 20 mg Q4H PRN Administration SBP > 180 and HR >/= 70 Losartan Potassium 100 mg 05/06/20 09:00 05/14/20 13:46 Losartan 25 Mg Tab PO 100 mg DAILY CHRISTIAN Administration Melatonin 3 mg 05/13/20 03:04 05/13/20 22:23 Melatonin 3 Mg Tab PO 3 mg HS PRN Administration Insomnia Memantine 10 mg 05/05/20 21:00 05/14/20 08:35 Memantine Hcl 10 Mg Tab PO 10 mg BID CHRISTIAN Administration Nifedipine 60 mg 05/08/20 05:27 05/14/20 13:46 Nifedipine Xl 30 Mg Tab PO 60 mg DAILY CHRISTIAN Administration Pantoprazole Sodium 40 mg 05/06/20 09:00 05/14/20 08:35 Pantoprazole 40 Mg Tab PO 40 mg DAILY CHRISTIAN Administration Polyethylene Glycol 17 gm 05/06/20 09:00 05/14/20 08:36 Polyethylene Glycol 3350 17 Gm Packet PO Not Given DAILY CHRISTIAN Tamsulosin HCl 0.4 mg 05/06/20 09:00 05/14/20 08:35 Tamsulosin Hcl 0.4 Mg Cap PO 0.4 mg DAILY CHRISTIAN Administration Tizanidine HCl 4 mg 05/05/20 12:00 01/11/21 13:46 Tizanidine Hcl 4 Mg Tab PO 4 mg 0400,1200,2000 CHRISTIAN Administration Trazodone HCl 200 mg 05/05/20 21:00 05/13/20 20:15 Trazodone Hcl 50 Mg Tab PO 200 mg HS CHRISTIAN Administration - Exam Neck: negative: supple, symmetric, no JVD, no thyromegaly, no lymphadenopathy, no carotid bruit, JVD Heart: negative: RRR, no murmur, no gallops, no rubs, normal peripheral pulses, irregular, diminshed peripheral pulses, murmur present, II/IV, III/IV Respiratory: negative: CTAB, no wheezes, no rales, no ronchi, normal chest expansion, no tachypnea, normal percussion, rales, rhonchi, tachypneic, wheezes Gastrointestinal: negative: soft, non-tender, non-distended, normal bowel sounds, no palpable masses, no hepatomegaly, no splenomegaly, no bruit, no guarding, no rigidity, tender to palpation, distended, diminished bowl sounds, voluntary guarding Hosp A/P - Plan Generalized weakness Possible new onset murmurecho in a.m. Continue to follow labs Patient is poor historian but reports missed dialysis treatment yesterday Heart murmur- possibly new Echo in a.m. Concerns for endocarditis in ERcurrently afebrile, no leukocytosiscontinue to monitor patient vitals along with lab work, continue IV antibiotics and consider cardiology consultation if deemed necessary after echo tomorrow Anemia Possibly from chronic disease Continue to monitor, no signs of bleeding Hypertension Restart patient home medications once reconciled End-stage renal disease on dialysis Consult nephrology in a.m. Patient may possibly need dialysis tomorrow as he missed yesterday Diabetes mellitus type 2 Monitor Accu-Cheks AC at bedtime Mild sliding scale insulin VTE prophylaxis in place with heparin CODE STATUS: Full Surrogate decision-maker is his nephew 05/05 patient's echo did not indicate any acute abnormalities. He is got no fever. No elevated WBCs. I do not believe this is endocarditis. We will stop vancomycin and ceftriaxone. PT OT to eval. There was some concerns for safety since APS was notified while patient was in the ER. We will get case management for possible short-term placement. 05/06 patient to be evaluated by PT/ OT. Will probably need some short-term placement. No fevers. Patient's antibiotics has been discontinued. 05/08 patient up in bed no issues. Waiting on placement for senior care facility 05/09 pt up in bed no complains. needs placement. 05/10 pt needs placement. per case picker pt's family is difficult to be contacted by the [facility] agency. 05/11 pt medically stable and ok for discharge. pt's family not cooperative in doing paperwork. Hard to discharge pt. will get inpatient rehab. 05/12 patient medically stable okay for discharge. Waiting for bed placement. 05/13 patient medically stable again looking for placement for this patient. 05/14 patient medically stable again hopefully discharge in a.m. spoke with case management
--- NOTE | 2020-05-14 17:42 | PRG ---
DATE OF SERVICE: 05/14/2020 OBJECTIVE: VITAL SIGNS: The patient noted with the following vital signs. Afebrile, temperature 97.7, pulse 80, respiratory rate of 18, O2 saturations of 96%, and blood pressure 179/84. HEENT: Unremarkable. CARDIOVASCULAR SYSTEM: First and second heart sounds were heard. RESPIRATORY SYSTEM: Clear to auscultation. DIGESTIVE SYSTEM: Revealed a benign abdomen. EXTREMITIES: No peripheral edema. SKIN: No new gross rash. LYMPHATICS: No peripheral lymphadenopathy. LABORATORY INVESTIGATION: Showed a hemoglobin of 8.8, white count of 4.2. Chemistry, none today. IMPRESSION: 1. End-stage renal disease, hemodialysis dependent, on a Thursday, Thursday, Thursday schedule. 2. Hypertension. 3. Anemia of chronic kidney disease. PLAN: 1. The patient will continue with current Thursday, Thursday, Thursday schedule dialysis with ultrafiltration as tolerated by hemodynamics. 2. Awaiting placement, otherwise from the renal standpoint the patient continued dialysis treatment. Job ID: [id number]
[2020-05-14] MEDS: traZODone HCl 50 MG TAB PO SCH (21:02)
[2020-05-14] MEDS: Melatonin 3 MG TAB PO PRN (22:03)
[2020-05-15] MEDS: tiZANidine HCl 4 MG TAB PO SCH ×2 (04:06→11:58)
[2020-05-15] MEDS: Polyethylene Glycol 3350 17 GM Packet PO SCH (08:30)
[2020-05-15] MEDS: Atorvastatin Calcium 40 MG TAB PO SCH (08:30)
[2020-05-15] MEDS: buPROPion 75 MG TAB PO SCH (08:31)
[2020-05-15] MEDS: Carvedilol 6.25 MG TAB PO SCH (08:31)
[2020-05-15] MEDS: Heparin 5,000 UNITS/ML VIAL SC SCH (08:32)
[2020-05-15] MEDS: Cholecalciferol 1,000 UNITS (25 MCG) TAB PO SCH (08:32)
[2020-05-15] MEDS: Losartan 25 MG TAB PO SCH (08:33)
[2020-05-15] MEDS: Tamsulosin HCl 0.4 MG CAP PO SCH (08:34)
[2020-05-15] MEDS: NIFEdipine XL 30 MG TAB PO SCH (08:34)
[2020-05-15 11:34] VITALS: BP 139/77; TEMP 98.2
[2020-05-15 12:18] VITALS: BMI 23.5
--- NOTE | 2020-05-15 13:56 | PDOC.HOSPP ---
- Subjective Encounter Date: 05/15/20 Encounter Time: 10:00 Subjective: no sob or pain feels good - Objective Vital Signs & Weight: Vital Signs (12 hours) Temp Pulse Resp BP BP Pulse Ox 05/15/20 11:33 98.2 F 81 16 139/77 94 L 05/15/20 08:34 78 150/70 H 05/15/20 08:31 150/70 H 05/15/20 08:00 98 05/15/20 07:46 98.3 F 78 16 150/70 H 98 05/15/20 04:00 98.0 F 80 16 150/82 H 95 Weight Admit Weight 139 lb 6.4 oz Weight 145 lb 8.081 oz I&O: 05/14/20 05/15/20 05/16/20 06:59 06:59 06:59 Intake Total 1150 200 Output Total 1 2400 Balance 1149 -2400 200 Result Diagrams: 05/11/20 09:45 05/11/20 08:12 Additional Labs: Accuchecks 05/15/20 05/15/20 05/15/20 11:30 06:19 05:34 POC Glucose 83 95 61 L 05/14/20 05/14/20 05/14/20 21:54 20:32 16:39 POC Glucose 93 61 L 138 H Hospitalist ROS - Medication Medications: Active Medications Generic Name Dose Route Start Last Admin Trade Name Freq PRN Reason Stop Dose Admin Atorvastatin Calcium 40 mg 05/06/20 09:00 05/15/20 08:30 Atorvastatin Calcium 40 Mg Tab PO 40 mg DAILY CHRISTIAN Administration Bupropion HCl 150 mg 05/06/20 09:00 05/15/20 08:31 Bupropion 75 Mg Tab PO 150 mg DAILY CHRISTIAN Administration Carvedilol 12.5 mg 05/05/20 21:00 05/15/20 08:31 Carvedilol 6.25 Mg Tab PO 12.5 mg BID CHRISTIAN Administration Cholecalciferol 2,000 units 05/06/20 09:00 05/15/20 08:32 Cholecalciferol 1,000 Units (25 Mcg) Tab PO 2,000 units DAILY CHRISTIAN Administration Epoetin Jones-epbx 10,000 unit 05/09/20 21:00 05/09/20 20:58 Epoetin Jones-Epbx (Esrd) 10,000 Unit/Ml Vial SC 10,000 unit Q7D CHRISTIAN Administration Heparin Sodium (Porcine) 5,000 units 05/09/20 21:00 05/15/20 08:32 Heparin 5,000 Units/Ml Vial SC 5,000 units BID CHRISTIAN Administration Insulin Human Lispro 0 units 05/03/20 23:27 05/06/20 06:07 Humalog 300 Units/3 Ml Vial SC 2 unit .MILD SLIDING SCALE PRN Administration Mild Correctional Scale Insulin Human Lispro 0 units 05/03/20 23:27 05/05/20 21:38 Humalog 300 Units/3 Ml Vial SC 4 unit .BEDTIME SLIDING SC PRN Administration Bedtime Correctional Scale Labetalol HCl 20 mg 05/04/20 04:07 05/07/20 04:04 Labetalol Hcl 100 Mg/20 Ml Vial SLOW IVP 20 mg Q4H PRN Administration SBP > 180 and HR >/= 70 Losartan Potassium 100 mg 05/06/20 09:00 05/15/20 08:33 Losartan 25 Mg Tab PO 100 mg DAILY CHRISTIAN Administration Melatonin 3 mg 05/13/20 03:04 05/14/20 22:03 Melatonin 3 Mg Tab PO 3 mg HS PRN Administration Insomnia Memantine 10 mg 05/05/20 21:00 05/15/20 08:33 Memantine Hcl 10 Mg Tab PO 10 mg BID CHRISTIAN Administration Nifedipine 60 mg 05/08/20 05:27 05/15/20 08:34 Nifedipine Xl 30 Mg Tab PO 60 mg DAILY CHRISTIAN Administration Pantoprazole Sodium 40 mg 05/06/20 09:00 05/15/20 08:34 Pantoprazole 40 Mg Tab PO 40 mg DAILY CHRISTIAN Administration Polyethylene Glycol 17 gm 05/06/20 09:00 05/15/20 08:30 Polyethylene Glycol 3350 17 Gm Packet PO Not Given DAILY CHRISTIAN Tamsulosin HCl 0.4 mg 05/06/20 09:00 05/15/20 08:34 Tamsulosin Hcl 0.4 Mg Cap PO 0.4 mg DAILY CHRISTIAN Administration Tizanidine HCl 4 mg 05/05/20 12:00 05/15/20 11:58 Tizanidine Hcl 4 Mg Tab PO 4 mg 0400,1200,2000 CHRISTIAN Administration Trazodone HCl 200 mg 05/05/20 21:00 05/14/20 21:02 Trazodone Hcl 50 Mg Tab PO 200 mg HS CHRISTIAN Administration - Exam General Appearance: awake alert Eye: PERRL, anicteric sclera ENT: no oropharyngeal lesions, moist mucosa Neck: supple, no JVD Heart: RRR, no gallops Respiratory: no wheezes, no rales Gastrointestinal: soft, non-tender, non-distended, normal bowel sounds Extremities: no cyanosis, no edema Neurological: cranial nerve grossly intact, no focal deficits Hosp A/P (1) ESRD (end stage renal disease) on dialysis Code(s): N18.6 - END STAGE RENAL DISEASE; Z99.2 - DEPENDENCE ON RENAL DIALYSIS Status: Chronic (2) HTN (hypertension) Code(s): I10 - ESSENTIAL (PRIMARY) HYPERTENSION Status: Chronic Qualifiers: Hypertension type: essential hypertension Qualified Code(s): I10 - Essential (primary) hypertension (3) Chronic anemia Code(s): D64.9 - ANEMIA, UNSPECIFIED Status: Chronic (4) Physical deconditioning Code(s): R53.81 - OTHER MALAISE Status: Acute (5) DM type 2 (diabetes mellitus, type 2) Status: Chronic Qualifiers: Diabetes mellitus rn long term care insulin use: without shelter use Diabetes mellitus complication status: with kidney complications Diabetes mellitus complication detail: with chronic kidney disease Chronic kidney disease stage: on chronic dialysis Qualified Code(s): E11.22 - Type 2 diabetes mellitus with diabetic chronic kidney disease; N18.6 - End stage renal disease; Z99.2 - Dependence on renal dialysis (6) Dyslipidemia Code(s): E78.5 - HYPERLIPIDEMIA, UNSPECIFIED Status: Chronic - Plan [facility] will be shortly dc'd hemostable is eating well, working with PT to mobilize, uses wheel chair for long distances per patient current current meds
--- NOTE | 2020-05-15 16:55 | DIS ---
DATE OF ADMISSION: 05/04/2020 DATE OF DISCHARGE: 05/15/2020 DISCHARGE DISPOSITION: [facility]. PRIMARY DISCHARGE DIAGNOSES: Initial suspicion for possible endocarditis, ruled out. SECONDARY DISCHARGE DIAGNOSES: 1. End-stage renal disease, on hemodialysis. 2. 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 3. Physical deconditioning. 4. Diabetes mellitus type 2. 5. Hypertension. 6. Dyslipidemia. PROCEDURES DONE DURING HOSPITALIZATION: The patient has had echo with 2D Doppler done, which showed ejection fraction of 60% to 65%. No major valvular abnormalities were noted or vegetations seen. CT brain on admission showed no acute intracranial abnormality. Chest x-ray done on the day of admission showed chronic right pleural effusion, which is decreasing in size when compared to prior x-rays. Blood cultures x2, no growth. H and H of 9 and 27, platelet count 145, MCV is 99, white count of 4. Albumin 3.1. HBS antigen nonreactive. DISCHARGE MEDICATIONS: 1. Atorvastatin 40 mg p.o. daily. 2. Carvedilol 12.5 mg twice daily. 3. Cozaar 100 mg daily. 4. Flomax 0.4 mg daily. 5. MiraLAX 17 g daily. 6. Namenda 10 mg twice daily. 7. Procardia XL 60 mg daily. 8. Protonix 40 mg daily. 9. Tizanidine 4 mg q.8 hourly p.r.n. 10. Trazodone 200 mg p.o. q.h.s. 11. Vitamin D3 2000 units p.o. daily. 12. Wellbutrin 150 mg p.o. daily. ALLERGIES: NO KNOWN DRUG ALLERGIES. INPATIENT CONSULT: Dr. Eller for Nephrology. DISCHARGE PLAN: The patient will follow up with his primary care physician, Dr. Everett in 1 week. BRIEF COURSE DURING HOSPITALIZATION: The patient initially got admitted on the 03 of May after ER physician found him to have a new murmur and suspicion for endocarditis along with generalized weakness. In view of this history, he was initially admitted to telemetry. He has had an echo with 2D Doppler done, which did not reveal any thrombus or vegetation. No gross valvular abnormalities were seen. His blood cultures were negative. There was initial complaint to [facility] about Outpatient [facility] staff unable to contact nephew. Case Management consultation was requested for the same. In view of his physical deconditioning and generalized weakness, he is being discharged to [facility] for further recuperation prior to going home. He has remained hemodynamically stable. Patient is working with Physical Therapy. He has ambulated around 40-feet with a rolling walker with contact guard assist and needs to work further with physical therapy. He has otherwise remained hemodynamically stable. Please see a [id number] documentation for the day of discharge on [place]. A total of 35 minutes was spent on discharge plan. Job ID: [id number] [facility]
== END 2020-05-15 14:07 | DRG 306 ==
LOC: ERS 18:37 → 2NO 21:24 → OBSVTOIN 05-04 14:06 → ONC 05-14 21:56
PROVIDERS: ADMIT Internal Medicine; ATTEND Internal Medicine
PROC: 5A1D70Z Performance of Urinary Filtration, Intermittent, Less than 6 Hours Per Day (ICD-10-PCS; principal; 2020-05-04)
DX: R01.1 Cardiac murmur, unspecified (principal); N18.6 End stage renal disease; I12.0 Hypertensive chronic kidney disease with stage 5 chronic kidney disease or end stage renal disease; D63.1 Anemia in chronic kidney disease; E11.22 Type 2 diabetes mellitus with diabetic chronic kidney disease; E78.5 Hyperlipidemia, unspecified; Z86.16 Personal history of COVID-19; Z99.3 Dependence on wheelchair; Z99.2 Dependence on renal dialysis; Z79.899 Other long term (current) drug therapy
CPT/HCPCS: 36415; 36416; 70450; 71045; 80048; 80053; 80202; 83605; 83690; 83970; 84484; 85007; 85025; 85027; 87040; 87340; 90935; 93005; 93306; 96365; 96367; 96372; G0257; G0378; J0696; J1644; J3370; J3490; J7050; Q5105